=== PATIENT | female | born 1990 | race African-American/Black ===

== ENCOUNTER 2024-11-20 10:01 | Outpatient (AMB) | payer OTHER, SELFPAY ==
[2024-11-20 10:23] VITALS: BMI 35.7
--- NOTE | 2024-11-20 10:23 | A.OFFVIS_ITS ---
VS Expanded 11/20/24 10:23 11/22/24 09:00 Height 5 ft 3 in 5 ft 3 in Weight 201 lb 8.04 oz 201 lb BMI 35.7 35.6 Intake Visit Reasons: Obesity Allergies No Known Allergies Allergy (Verified 11/20/24 15:10) Nutrition Presentation Details: Pt presents for MNT for obesity The Pt expresses interest in meal planning/balancing foods Pt reports making dietary modifications by reducing on red meats/and high fat foods which were leading to acid reflux. Pt Reports no longer taking omeprazole since diet modifications and has noticed improvement, with less or no GERD symptoms Pt reports weight loss of 12-15 lbs in 4-6 months food frequency fish : 0-1/wk fruits: 1-2/d vex/wk dairy 1-2/d starches >20 beverages: water, tea , juices PA--- ETOH/SMoking_--- BS Monitoring Most Recent Diabetes Results: No Data to Display LMR-Wzblovj-Lz.Jeor Equation Height: 5 ft 3 in Weight: 201 lb Resting Metabolic Rate: 1587.57 Calculated Activity Level: Sedentary Calories Needed to Maintain Weight: 1905.08 Diagnosis Nutrition problem #1: food nutri know defi As related to (etiology) #1: diagnosis As evidenced by (sign/symptom) #1: high BMI (35 today at 11/22/24) [facility], [facility] Medical History (Updated 11/22/24 @ 08:[address], LDN) Numbness and tingling in both hands Anxiety Class 2 obesity Surgical History (System 11/20/24 @ 15:10 by Eduardo Burton) [place] teeth removed Family History Mother HTN (hypertension) Diabetes Anemia Maternal Grandmother Anemia Maternal Uncle Crohn's disease Multiple myeloma Social History (System 11/20/24 @ 15:10 by Eduardo Burton) Alcohol intake: never Patient Tobacco Use Status: Never used Tobacco Assessment & Plan Assessment & Plan (1) Obesity (BMI 30-39.9): Code(s): E66.9 - Obesity, unspecified Category: Medical Plan: Wt: 91 Kg ( 12/10 ) Est kcal needs as per MSJ: 2000 (40% carb, 30% protein/fat) Est fluid needs as per 25-30 ml/d: 2700 Est prot per day as per 1 g/kg bw: 91 Recommend fiber intake : 8-10 g per day and gradually increase to 25-28 g per day for women and 35-38 g for men or as tolerated Recommend sodium intake per day : less than 2000 mg Educated patient on: ( R = reviewed V = verbalizes understanding N/R = needs review N/A = not applicable * Food sources of carbohydrate, adequate serving sizes and its role in various health conditions: R V N/R * Differences between complex carbohydrates a simple carbohydrates, role of fiber in diet: R * Lean protein sources of foods: R * Differences between types of fats and role in diet (mono on saturated fat fatty acids, saturated fatty acids, trans fats): R V N/R * Food sources of sodium in salt and healthy modifications for heart health in kidney health: R V R/V * Vitamins and minerals: R V N/R * Healthy plate method concept: R * Physical activity: Benefits a precaution: R V N/R * Patient Instructions: Practice mindful eating strategies Follow healthy plate method continuing to work on reducing on fats (fried foods, amount of butter, oil, sauces, creams , breaded food items, pastries and similar food) see 1999 calorie meal plan following healthy plate method Coding Level of Care Code Nutr Indiv Intake (69368) Diagnoses Obesity (BMI 30-39.9) E66.9 Time Spent (min) 20
--- OUTSIDE RECORDS SUMMARY | 2024-11-20 11:16 | XMS_ITS | Data Portability ---
Author Organization [place] - [facility] Address [address] [place] [address] Assessment Encounter Date Assessment Date Assessment LastModified by Organization Details LastModified Time 06/09/2024 06/09/2024 Ddx: Viral URI, Acute Bronchitis, Influenza, ABRS, COVID-19 A: Symptoms consistent with viral URI. Patient without symptoms suggestive of bacterial etiology at this time. P: Discussed expected course of viral URIs. Provided counseling/treatme nt recommendations as noted below: Nasal saline rinses Humidification Rest, hydration Smoking cessation as indicated Monitor for fever, SOB, wheezing, worsening breathing difficulty Medications prescribed: atarax 10mg every 8 hours as needed Antibiotic stewardship education Counseled on the importance of follow up if symptoms not improving with recommended treatment plan. Patient to be seen for repeat evaluation if symptoms worsen, counseled on red flag symptoms to indicate need for emergent follow up. Patient expressed understanding and agreement with treatment plan as outlined. anxiety - mother one year ago - atarax 10mg can take every 8 hours as needed for anxiety rmeirer Not available 06/09/2024 15:20:06 Plan of Treatment Reminders Order Date Submit Date Provider Last Modified By Organization Details Last Modified Time Details Appointments None recorded. Lab None recorded. Referral None recorded. Procedures None recorded. Surgeries None recorded. Imaging None recorded. Medication Orders hydroxyzine HCl 10 mg tablet 2023 024 [facility] #[id number], [address] [place], [address], 15:20:58 Patient TargetsNo targets recorded. Patient Instructions Encounter Date Encounter Id Patient Instructions Last Modified By Organization Details Last Modified Time 06/09/2024 [id number] grief (actual/anticipat ed): care instructions rmeirer Not available 06/09/2024 15:20:56 upper respirator y infection (cold): care instructions rmeirer Not available 06/13/2024 06:57:54 Reason for Referral None Reported. Problems No Known Problems Medical Equipment None Reported. Allergies No known drug allergies Medications Name Sig Start Date Stop Date Status Note LastModified by Organization Details LastModified Time norethindrone (contraceptive) 0.35 mg tablet active Not Available Not Availab le Not Available hydroxyzine HCl 10 mg tablet Take 1 tablet 4 times a day by oral route as needed, for anxiety. 2023 active Not Available Not Available Not Avai lable fluticasone propionate 50 mcg/actuation nasal spray,suspensio n active Not Available Not Available Not Available Vitals None Recorded Social History None recorded. Functional Status None recorded. Mental Status None recorded. Family History Nothing Reported. Medical History No medical history recorded. Gynecological HistoryNo gynecological history recorded. Obstetrics History GPAL:G 0 P 0 0 0 0 Past Encounters Encounter ID Performer Location Encounter Start Date Encounter Closed Date Diagnosis/Indication Diagnosis SNOMED-CT Code Diagnosis ICD10 Code Diagnosis Note [id number] Karuna Johns DO [address] [address] 06/09/2024 14:48:59 06/13/2024 09:21:25 Bereavement 01284134 Z63.4 Acute uppe r respiratory infection 06073173 J06.9 Health Concerns Section Related Observation LastModified by Organization Detai ls LastModified Time None Recorded Concern Status LastModified by Organization Details LastModified Time None Recorded Advance Directives Directive None Recorded Payers Encounter Date Sequence Insurance Name Policy Number Policy Macdonald Covered Member ID Macdonald Member ID Guarantor Name 06/09/2024 1 [facility] [id number] Carrol Antrum [id number] [employer] An[employer] 06/09/2024 2 *SELF PAY* [id number] Carrol Antrum [id number] Carrol Antrum Notes Date Note Type Note Provider Name and Address Organization Details Recorded Time 06/09/2024 text/html Call connected, patient greeted. Patient name, , telephone number and location verified verbally with the patient. Telemedicine limitations reviewed, answered all questions the patient had about the telehealth interaction, and verbal consent obtained to treat. HPI: 34 year old female calling c/o being sick for one week. Never felt so sick. Her symptoms started 8 days ago - stuffy nose at first. Wednesday morning had a nose bleed. Next day had a sore throat, lost voice, improved. 2-3 days ago, felt like discomfort 1/10 in chest, +coughing, intermittent. Coughs up mucus. Nasal congestion has improved. Had a visit with primary care and was prescribed nasocort. [place] better later that day with humdifier. no wheezing. No fever and body aches. Had flu. covid - did not take. Karuna Johns, DO [address] [facility] [address], [place], [address], [facility] 06/13/2024 06:58:01 OBGyn Episode No OBEpisode recorded.
[2024-11-22 09:00] VITALS: BMI 35.6
== END 2024-11-20 10:43 | disposition home or self-care (01) ==
LOC: HO.ENCR 10:01
PROVIDERS: PCP Student in an Organized Health Care Education/Training Program; Visit Provider Dietitian, Registered
DX: E66.9 Obesity, unspecified (principal)

== ENCOUNTER → 2024-11-20 10:01 | Outpatient (BNVA) | payer OTHER, SELFPAY | PROVIDERS: PCP Student in an Organized Health Care Education/Training Program; Visit Provider Dietitian, Registered | DX: E66.9 Obesity, unspecified (principal); Z71.3 Dietary counseling and surveillance; Z68.35 Body mass index [BMI] 35.0-35.9, adult | CPT/HCPCS: 97802 ==

== ENCOUNTER 2024-11-20 13:37 | Outpatient (AMB) | payer OTHER, SELFPAY ==
--- NOTE | 2024-11-20 14:12 | A.OFFVIS_ITS ---
Vital Signs 11/20/24 14:14 Height 5 ft 3 in Weight 202 lb 8 oz BMI 35.9 BP 122/78 Blood Pressure Location Rt brachial Position Sitting Intake Visit Reasons: ENP- Numbness / [place]ing[place]-Conf Intake Note: Patient referred by [facility] for numbness and tingling Allergies No Known Allergies Allergy (Verified 11/13/24 09:49) Medication List - Last Reconciled 11/20/24 by Maye Goodwin MD fluticasone propionate 50 mcg/actuation 2 sprays intranasal DAILY HPI Comments Details: 34 y/o female comes for evaluation of 1 episodes of numbness and tingling in hilaria hands and restless legs. The episode was in May 2024 she woke up , felt woozy and also mildly off balance . she thought it was panic attack . when she went to the shower - she could not lift her arms above the shoulder and had tingling in hilaria forearms and hands. she called 911, it lasted 20 minutes.she did not go to ER as she had a PCP appointment later that day.the second episode was day before - was getting ready for bed, had a mild headache , took tylenol . she could not sleep well that night and restless , tingling in her legs . No further episodes since then . she denies neck pain or back pain she denies any radiating pain . she sleeps well. denies snoring. 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 and she is wondering if it is contributing [facility] Medical History (Updated 11/20/24 @ 14:42 by Maye Goodwin MD) Numbness and tingling in both hands Anxiety Class 2 obesity Surgical History [place] teeth removed Family History Mother HTN (hypertension) Diabetes Anemia Maternal Grandmother Anemia Maternal Uncle Crohn's disease Multiple myeloma Social History Alcohol intake: never Patient Tobacco Use Status: Never used Tobacco Physical Exam Vital Signs: Last Vital Signs BP 122/78 11/20/24 14:14 BMI result Body Mass Index 35.9 Const General: cooperative, healthy appearing and comfortable Nutritional Appearance: average body habitus Orientation/consciousness: patient oriented x3 Eyes Pupils: Equal, round and reactive pupils present Neuro General: patient oriented x3, gait normal, tone normal, moves all extremities and no focal motor deficits Cranial nerves: Yes Facial sensation intact/muscles of mastication intact, Yes Equal, round and reactive pupils present, Yes Bilaterally intact EOM present, Yes Nystagmus not present, Yes Normal facial strength present, Yes Midline tongue present, Yes Symmetric palate elevation present and Yes Ability to bilaterally elevate shoulders present Cognition (Neuro): normal cognition Gait exam (Neuro): Normal gait present Motor exam (neuro): 5/5 motor strength present throughout and Normal motor mus sebastian tone present throughout Deep tendon reflexes (DTR's): Right triceps reflex intensity grade: 1+, Left triceps reflex intensity grade: 1+, Rt Biceps (C5, C6): 1+, Left biceps reflex intensity grade: 1+, Right brachioradialis reflex intensity grade: 1+, Left brachioradialis reflex intensity grade: 1+, Right patellar reflex intensity grade: 1+ and Left patellar reflex intensity grade: 1+ Coordination: [id number] test normal Assessment & Plan Assessment & Plan (1) Numbness and tingling in both hands: Code(s): R20.0 - Anesthesia of skin; R20.2 - Paresthesia of skin Category: Medical Plan I will evaluate her with EMG NCS UE Lab reports from PCP for review. Orders: Orders NE electromyogram (EMG) Today R20.0 - Anesthesia of skin, R20.2 - Paresthesia of skin NE nerve conduction velocity Today R20.0 - Anesthesia of skin, R20.2 - Par esthesia of skin Coding Level of Care Code New Pt Level 4 (88747) Diagnoses Numbness and tingling in both hands R20.0; R20.2
[2024-11-20 14:14] VITALS: BP 122/78; BMI 35.9
--- OUTSIDE RECORDS SUMMARY | 2024-11-20 15:06 | XMS_ITS | Clinical Summary ---
Author Organization [address] [facility] Address [address] [place] [address] Phone Care Team Providers Care Sandstone Inspector Repairer Name Role Phone Humera Bautista MD Primary Care Provider [phone] Allergies No known active allergies Medications norethindrone (DONALD,BHUMIKA,H EATHER,MICRONOR ) 0.35 mg tablet TAKE 1 TABLET BY MOUTH EVERY DAY 4 Active multivit-min/fe rrous fumarate (MULTI VITAMIN ORAL) Take by mouth. Activ e cholecalciferol (VITAMIN D-3) 250 mcg (10,000 unit) capsuleIndicati ons:Other fatigue Take 1 capsule (10,000 Units total) by mouth 1 (one) time each day. 30 each 11 4 06/05/20 25 Active fluticasone propionate (FLONASE) 50 mcg/actuation nasal sprayIndication s:allergic conjunctivitis, allergic rhinitis Administer 2 sprays into each nostril 1 (one) time each day. Shake gently. Before first use, prime pump. After use, clean tip and replace cap. 30 mL 3 4 Active pantoprazole (PROTONIX) 40 mg EC tablet Take 1 tablet (40 mg total) by mouth 1 (one) time each day. Do not crush, chew, or split. 90 each 1 4 12/31/19 25 Active Active Problems Problem Noted Date Diagnosed Date Class 2 obesity with body ma ss index (BMI) of 37.0 to 37.9 in adult 04/24/2024 Encounters Date Type Department Care Team Description 10/04/2024 9:45 AM EDT Telemedicine Internal Medicine - [address] [place] [address] Humera Bautista MD Gastroesophageal reflux disease, unspecified whether esophagitis present (Primary Dx) from Last 3 Months Immunizations Name Administration Dates Next Due DTP 11/16/1995, 4,1991,1991,1991 VFpU-EIY-DIC (Pentacel) 2mo to less than 5yo 1991,1991,1991 Hepatitis B Pediatric (Enger ix B; Recombivax HB) to less than 20 yo 03/30/2002,11/18/2001,06/16/2001 Influenza Quadravalent, MDCK , 0.5ml, preservative free (Flucelvax) 6mo and older 03/29/2019,08/22/2018 Influenza, Unspecified 04/10/2020 MMR, measles mumps and rubel la Live (Priorix; M-M-R II) 12mo and older 11/16/1995,05/09/1992 OPV 11/16/1995, 4,1991,1991,1991 MyoScience SARS-CoV-2 COVID-19, mRNA, LNP-S, preservative free 12/30/2020,12/08/2020 Rubella 03/11/2020 Td Tetanus diptheria (Tdvax) 7yo and older 04/18/2003 Tdap Tetanus diptheria acell ular pertussis (Boostrix; Adacel) 7yo and older 07/02/2020,08/22/2018 Varicella live (Varivax) 12m o and older 11/06/2020,10/06/2020,10/29/2011,2002 Zoster Live 03/11/2020 Surgical History Surgery Date Site/Laterality Comments WISDOM TOOTH EXTRACTION 2016 Bilateral PROCEDURE: HISTORICAL WISDOM TEETH EXTRACTION; COMMENT: lower R, upper left. no excess bleeding. Medical History Medical History Date Comments Covid-19 07/20/2021 DX:COVID-19; COM MENT: [facility] Family History Medical History Relation Name Comments Other: 2 yrs younger Brother Wood healthy as of 02/2020 Other: mild autism Brother Wood No Known Problems Father no contact , he abandoned family when pt was 7 Colon polyps Maternal Grandfather Other: Other Maternal Grandfather healthy age 73 as of 02/2020 Anemia Maternal Grandmother Diabetes Maternal Grandmother due to medications she was on (primarily diet controlled) Multiple myeloma Maternal Grandmother age 69 Other: ITP Maternal Grandmother Anemia Mother Diabetes Mother type 2 - insuli n Hypertension Mother Obesity Mother Leukemia Mother's side MGGM juvenile leuke himanshu - passed in her 30's No Known Problems Paternal Grandfather No Known Problems Paternal Grandmother Crohn's disease Uncle maternal Multiple myeloma Uncle maternal Breast cancer Neg Hx Cervical cancer Neg Hx Colon cancer Neg Hx Ovarian cancer Neg Hx Pancreatic cancer Neg Hx Prostate cancer Neg Hx Uterine cancer Neg Hx Relation Name Status Comments Brother Wood Alive Father Alive Maternal Grandfather Alive Maternal Grandmother Mother Mother's side MGGM Paternal Grandfather Paternal Grandmother Uncle maternal Alive Social History Tobacco Use Types Packs/Day Years Used Date Smoking Tobacco: Never Smokeless Tobacco: Never Tobacco Cessation:Counseling Given: Not Answered Alcohol Use Standard Drinks/Week Comments No 0 (1 standard drink = 0.6 oz pur e alcohol) Housing Instability Answer Date Recorde d Are you worried that in the next 2 months you may not have stable housing? No 05/30/2024 Food Access & Nutrition Answer Date Rec orded Do you have access to a vari ety of food including fruits and vegetables? Patient declined 05/30/2024 Health Literacy Answer Date Recorded How often do you need to hav e someone help you when you read instructions, pamphlets, or other written material from your doctor or pharmacy? Patient declined 05/30/2024 Caregiver: How often do you need to have someone help you when you read instructions, pamphlets, or other written material from your doctor or pharmacy? Not on file 024 Financial Risk Answer Date Recorded How hard is it for you to pa y for the very basics like food, housing, medical care, and air conditioning / heating? Not asked 05/30/2024 Transportation Answer Date Recorded Has the lack of transportati on kept you from meetings, work, or from getting things needed for daily living? Not asked 2023 Has the lack of transportati on kept you from medical appointments or from getting medications? Not asked 05/30/2024 Social Isolation Answer Date Recorded How often do you feel lonely or isolated from those around you? Not asked 05/30/2024 Food Risk Answer Date Recorded Within the past 12 months we worried whether our food would run out before we got money to buy more. Not asked 05/30/2024 Within the past 12 months th e food we bought just didn't last and we didn't have money to get more. Not asked 05/30/2024 Dependent Care Answer Date Recorded Do you need help finding or paying for care for your loved ones. For example, child neurologist or elderly care for an older adult? Patient declined 05/30/2024 Education Answer Date Recorded Do you think completing more education or training, like finishing a GED, going to college, or learning a trade, would be helpful for you? N/A 05/30/2024 Employment and Income Answer Date Recor ded During the last four weeks, have you been actively looking for work? Patient declined 05/30/2024 Living Situation Answer Date Recorded What is your living situation? 1 07/30/2023 Comments Unknown Sex and Gender Information Value Date Recorded Sex Assigned at Female 07/05/2024 10:46 AM EST Legal Sex Female 9:33 AM EST Gender Identity Female 07/05/2024 10:46 AM EST Sexual Orientation Straight 07/05/2024 10 :46 AM EST Obstetrics History Last Filed Vital Signs Vital Sign Reading Time Taken Comments Blood Pressure 116/84 07/03/2024 12:05 PM EST Pulse 108 07/03/2024 12:05 PM EST Temperature 36.1 ??C (97 ??F) 07/03/2024 12:05 PM EST Respiratory Rate - - Oxygen Saturation 98% 07/03/2024 12:05 PM EST Inhaled Oxygen Concentration - - Weight 97.5 kg (215 lb) 07/03/2024 12:05 PM EST Height 157.5 cm (5' 2 ) 07/03/2024 12:05 PM EST Body Mass Index 39.32 07/03/2024 12:05 PM EST Plan of Treatment Upcoming Encounters Date Type Department Care Team (Late st Contact Info) Description 12/04/2024 9:00 AM EDT Office Visit Internal Medicine - [place] [address] [facility] [address] [place] [id number] Humera Bautista MD [address] [facility] [address] [place] [address] Health Maintenance Due Date Last Done Comments COVID-19 Vaccine ( season) 2024 12/30/2020, 12/08/2020 Influenza Vaccine (Season Ended) 2025 04/10/2020, 03/29/2019, 08/22/2018 Social Influencers of Health Screening 05/30/2025 05/30/2024 Depression Screening 09/22/2025 09/22/2024 Cervical Cancer Screening: HPV 08/25/2027 08/25/2022 Cholesterol Screening (Lipid Panel) 06/05/2029 06/05/2024, 10/08/2023, 10/29/2017 DTaP,Tdap,and Td Vaccines (9 - Td or Tdap) 07/02/2030 07/02/2020, 08/22/2018, 04/18/2003, Additional history exists HIB Vaccines Aged Out 1991, 09/16, 1991 No longer eligible based on patient's age to complete this topic IPV Vaccines Completed 11/16/1995, 07/1993, 1991, Additional history exists MMR Vaccines Completed 11/16/1995, 05/09/1992 Hepatitis B Vaccines Completed 03/30/2002, 11/18/2001, 06/16/2001 HIV Screening Completed 03/11/2020 Hepatitis C Screening Completed 03/11/2020 Varicella Vaccines Completed 11/06/2020, 0 10/06/2020, 10/29/2011, Additional history exists HPV Vaccines Aged Out No longer eligi ble based on patient's age to complete this topic Hepatitis A Vaccines Aged Out No long er eligible based on patient's age to complete this topic Meningococcal ACWY Vaccine Aged Out N o longer eligible based on patient's age to complete this topic Meningococcal B Vaccine Aged Out No l onger eligible based on patient's age to complete this topic Pneumococcal Vaccine: Pediatrics (0 to 5 Years) and At-Risk Patients (6 to 64 Years) Aged Out No longer eligible based on patient's age to complete this topic RSV Immunization Patients Under 20 months Aged Out No longer eligible based on patient's age to complete this topic Procedures Procedure Name Priority Date/Time Associated Diagnosis Comments LIPID PANEL WITH REFLEX TO DIRECT LDL Routine 06/05/2024 10:06 AM EST Routine adult health maintenance HPV Routine 08/25/2022 HEPATITIS C SCREENING Routine 03/11/2020 HIV SCREENING Routine 03/11/2020 from Last 3 Months or Most Recently Relevant to Health Maintenance Results * (ABNORMAL) Lipid panel with reflex to direct LDL (06/05/2024 10:06 AM EST) Cholesterol 183 0 - 200 mg/dL LAB CHEMISTRY METHOD 06/05/2024 4:[address] [facility] Triglycerides 104 0 - 150 mg/dL LAB CHEMISTRY METHOD 06/05/2024 4:[address] [facility] HDL 58 >=40 mg/dL LAB CHEMISTRY METHOD 06/05/2024 4:[address] [facility] LDL Calculated 104(H) 0 - 100 mg/dL LAB CHEMISTRY METHOD 06/05/2024 4:[address] [facility] VLDL Cholesterol Navi 20.8 mg/dL LAB CHEMISTRY METHOD 06/05/2024 4:[address] [facility] Non HDL Chol. (LDL+VLDL) 125 <145 mg/dL LAB CHEMISTRY METHOD 06/05/2024 4:[address] [facility] Chol/HDL Ratio 3.2 0.0 - 4.4 LAB CHEMISTRY METHOD 06/05/2024 4:[address] [facility] Blood Venous blood specimen / Unknown Venipuncture / Unknown 06/05/2024 10:06 AM EST 06/05/2024 10:07 AM EST Alicia Warren LEAD WEB DEVELOPER LAB BLOOD ORDERABLES Final Resul t [facility] ([facility]) [facility] [address] [place] [address], * Cervical Cancer Screening: HPV (08/25/2022) Pathologist [facility] Cervical Cancer Screening: HPV Negative, Abstracted Historical Provider HEALTH MAINTENANCE Final Result * HIV Screening (03/11/2020) [facility] HIV Screening Abstracted Historical Provider HEALTH MAINTENANCE Final Result * Hepatitis C Screening (03/11/2020) Pathologist [facility] Hepatitis C Screening Abstracted Historical Provider HEALTH MAINTENANCE Final Result from Last 3 Months or Most Recently Relevant to Health Maintenance Insurance [facility] [place] [id number] Care Teams Sandstone Inspector Repairer Relationship Specialty Start Date End Date Humera Bautista MD [address] [facility] [address] [place] [address] PCP - General 10/06/23
--- OUTSIDE RECORDS SUMMARY | 2024-11-20 15:06 | XMS_ITS | Data Portability ---
Author Organization [place] - [facility] , [facility] Address [address] [place] [address] Assessment Encounter Date Assessment Date Assessment LastModified [...] hydroxyzine HCl 10 mg tablet 2023 024 [facility]Pharmacy #[id number], [address] [place], [address], 15:20:58 Patient TargetsNo targets recorded. Patient Instructions Encounter Date Encounter Id Patient Instructions Last Modified By Organization Details Last Modified Time 06/09/2024 [id number] grief (actual/anticipat ed): care instructions rmeirer Not [...] SNOMED-CT Code Diagnosis ICD10 Code Diagnosis Note [id number] Karuna Johns DO [address] [address] 06/09/2024 14:48:59 06/13/2024 09:21:25 Bereavement 43153407 Z63.4 Acute uppe r respiratory infection 28228823 J06.9 Health Concerns Section Related Observation LastModified by Organization Detai ls LastModified Time None Recorded Concern Status LastModified by Organization Details LastModified Time None Recorded Advance Directives Directive None Recorded Payers Encounter Date Sequence Insurance Name Policy Number Policy Macdonald Covered Member ID Macdonald Member ID Guarantor Name 06/09/2024 1 [facility] [id number] Carrol Antrum [id number] Carrol Antrum 06/09/2024 2 *SELF PAY* [id number] Carrol Antrum [id number] Carrol Antrum Notes Date Note Type Note [...] with primary care and was prescribed nasocort. [place] better later that day with humdifier. no wheezing. No fever and body aches. Had flu. covid - did not take. Karuna Johns, DO 1 [facility] [address], [place], [address], [facility] - [facility] 06/13/2024 06:58:01 OBGyn Episode No OBEpisode recorded.
== END 2024-11-20 14:51 | disposition home or self-care (01) ==
LOC: HO.HSMS 13:38
PROVIDERS: PCP Student in an Organized Health Care Education/Training Program; Visit Provider Psychiatry & Neurology Neurology
DX: R20.0 Anesthesia of skin (principal); R20.2 Paresthesia of skin
CPT/HCPCS: 99204

== ENCOUNTER → 2024-11-20 13:37 | Outpatient (BNVA) | payer OTHER, SELFPAY | PROVIDERS: PCP Student in an Organized Health Care Education/Training Program; Visit Provider Psychiatry & Neurology Neurology ==

== ENCOUNTER 2024-12-05 09:21 | Outpatient (REF) | payer OTHER, SELFPAY ==
--- NOTE | 2024-12-05 09:26 | EMG_ITS ---
Bilateral median and ulnar motor and sensory studies were performed. Bilateral radial sensory and median and lateral antecubital brachial sensory studies were performed and paraspinal muscles were tested with a needle. IMPRESSION: Mild bilateral median neuropathy across carpal tunnel. MD GERBER Morrison/GEORGIE / [id number]
--- OUTSIDE RECORDS SUMMARY | 2024-12-05 10:10 | XMS_ITS | Data Portability ---
Author Organization [place] - [facility] , [facility] Address [address] [place] [address] Assessment Encounter Date Assessment Date Assessment LastModified [...] hydroxyzine HCl 10 mg tablet 2023 024 [facility]/Pharmacy #[id number], [address] [place], [address], 15:20:58 Patient TargetsNo targets recorded. Patient Instructions Encounter Date Encounter Id Patient Instructions Last Modified By Organization Details Last Modified Time 06/09/2024 [id number] grief (actual/anticipat ed): care instructions rmeirer Not [...] SNOMED-CT Code Diagnosis ICD10 Code Diagnosis Note [id number] Karuna Johns DO [address] [address] 06/09/2024 14:48:59 06/13/2024 09:21:25 Bereavement [id number] Z63.4 Acute uppe r respiratory infection [id number] J06.9 Health Concerns Section Related Observation LastModified by Organization Detai ls LastModified Time None Recorded Concern Status LastModified by Organization Details LastModified Time None Recorded Advance Directives Directive None Recorded Payers Insurance Date Sequence Insurance Name Policy Number Policy Macdonald Covered Member ID Macdonald Member ID Guarantor Name 06/07/2024 1 *SELF PAY* Ja zmine Antrum 06/19/2024 1 [facility] [id number] Carrol Antrum [id number] Carrol Antrum 06/07/2024 [employer] [id number] Carrol Antrum [id number] Carrol Antrum 06/07/2024 2 *SELF PAY* [id number] Carrol Antrum [id number] Carrol Antrum Notes Date Note Type Note [...] with primary care and was prescribed nasocort. Percy better later that day with humdifier. no wheezing. No fever and body aches. Had flu. covid - did not take. Karuna Johns, DO 1 [facility] [address], [place], [address], [place] - [facility] 06/13/2024 06:58:01 OBGyn Episode No OBEpisode recorded.
--- OUTSIDE RECORDS SUMMARY | 2024-12-05 10:10 | XMS_ITS | Encounter Summary ---
Author Organization [facility] Address [address] [place] [address] Care Team Providers Care Calender Machine Operator Helper Name Role Phone Humera Bautista MD Primary Care Provider [phone] Reason for Visit * Reason Comments Follow-up Encounter Details Date Type Department Care Team ([facility] st Contact Info) Description 12/04/2024 9:00 AM EDT Office Visit Internal Medicine - [place] [address] [facility] [address] [place] [phone] Humera Bautista MD [address] [address] Class 2 obesity with body mass index (BMI) of 37.0 to 37.9 in adult, unspecified obesity type, unspecified whether serious comorbidity present (Primary Dx); Gastroesophageal reflux disease, unspecified whether esophagitis present Social History Tobacco Use Types Packs/Day Years Used Date Smoking Tobacco: Never Smokeless Tobacco: Never Alcohol Use Standard Drinks/Week Comments No 0 [...] your doctor or pharmacy? Not on file Financial Risk Answer Date Recorded How hard [...] care for your loved ones. For example, children's literature professor or elderly care for an older adult? [...] Orientation Straight 07/05/2024 10 :46 AM EST documented as of this encounter Last Filed Vital Signs Vital Sign Reading Time Taken Comments Blood Pressure 124/68 12/04/2024 9:04 AM EDT Pulse 84 12/04/2024 9:04 AM EDT Temperature - - Respiratory Rate - - Oxygen Saturation 98% 12/04/2024 9:04 AM EDT Inhaled Oxygen Concentration - - Weight 91.2 kg (201 lb) 12/04/2024 9:04 AM EDT Height - - Body Mass Index 36.76 07/03/2024 12:05 PM EST documented in this encounter Ordered Prescriptions Prescription Sig Dispense Quantity Refills Last Filled Start Date End Date calcium carbonate-vitamin D 500 mg-5 mcg (200 unit) per tablet Take 1 tablet by mouth 2 (two) times a day. 180 each 3 12/04/2024 12/04/2025 documented in this encounter Progress Notes * Humera Bautista MD - 12/04/2024 9:00 AM EDT Images from the original note were not included. Patient Education Gastroesophageal Reflux Disease (GERD): Care Instructions Overview Gastroesophageal reflux disease (GERD) is the backward flow of stomach acid into the esophagus. Theesophagus is the tube that leads from your throat to your stomach. A one-way valve prevents the stomach acid from backing up into this tube. But when you have GERD, this valve does not close tightly enough. This can also cause pain and inflammation in your esophagus. (This is called esophagitis.) You may also hear GERD called acid reflux. If you have mild GERD symptoms including heartburn, you may be able to control the problem with antacids or wvsn-ptq-ksspvrl medicine. You can also make lifestyle changes to help reduce your symptoms. These include changing your diet and eating habits, such as not eating close to bedtime and staying at a weight that's healthy for you. Follow-up care is a price part of your treatment and safety. Be sure to make and go to all appointments, and call your doctor if you are having problems. It's also a good idea to know your test resultsand keep a list of the medicines you take. How can you care for yourself at home? Take your medicines exactly as prescribed. Call your doctor if you think you are having a problem with your medicine. Your doctor may recommend mdxh-bdl-chwkjki medicine. For mild or occasional indigestion, antacids, such as Tums, Mylanta, or Maalox, may help. Your doctor also may recommend obip-nof-lnooinx acid reducers, such as famotidine (Pepcid AC), cimetidine (Tagamet HB), or omeprazole (Prilosec). Read and follow all instructions on the label. If you use these medicines often, talk with your doctor. Stay at a weight that's healthy for you. Extra weight puts a lot of pressure on the valve between the stomach and esophagus. Losing even a few pounds can help. Talk to your doctor if you need help losing weight. Change your eating habits. Try to eat several small meals instead of two or three large meals. After you eat, wait 2 to 3 hours before you lie down. Snacking close to bedtime can make your symptoms worse. Avoid foods that make your symptoms worse. These may include chocolate, mint, alcohol, pepper, spicy foods, high-fat foods, or drinks with caffeine in them, such as tea, coffee, alexander, or energy drinks. If your symptoms are worse after you eat a certain food, you may want to stop eating it to see if your symptoms get better. Try to quit smoking or chewing tobacco, or cut back as much as you can. If you need help quitting, talk to your doctor about quit-tobacco programs and medicines. These can increase your chances of quitting for good. If you have GERD symptoms while trying to sleep, raise the head of your bed 6 to 8 inches by putting the frame on blocks or placing a foam wedge under the head of your mattress. (Adding extra pillowsdoes not work.) Do not wear tight clothing around your middle. When should you call for help? Call 911 anytime you think you may need emergency care. For example, call if: You passed out (lost consciousness). Call your doctor now or seek immediate medical care if: You have new or worse belly pain. Your stools are black and tarlike or have streaks of blood. You vomit blood. Watch closely for changes in your health, and be sure to contact your doctor if: Your symptoms have not improved after 2 weeks. Food seems to catch in your throat or chest. Where can you learn more? Scan the QR code or Go to https://www.Can'tWait.net/allanchart Enter T927 in the search box to learn more about Gastroesophageal Reflux Disease (GERD): Care Instructions. Current as of: May 06, 2024 Content Version: 14.4 ?? [id number] [email or web address]. Care instructions adapted under license by your healthcare professional. If you have questions about a medical condition or this instruction, always ask your healthcare professional. [employer], disclaims any warranty or liability for your use of this information. * Humera Bautista MD - 12/04/2024 9:00 AM EDT CHIEF COMPLAINT: Follow-up IDENTIFIER: Carrol Baxter is a 34 y.o. old female. History of Present Illness The patient presents for a follow-up visit. Overall Health Improvement - Reports overall health improvement due to dietary modification Tingling in Leg - Recurrent tingling in her leg, originating from the posterior knee - Occurs especially after extensive walking Medication and Supplements - Completed pantoprazole - Not using contraceptive medication - Discontinued her multivitamin regimen and is considering resuming it Concerns about Heartburn - Expressed concerns about hereditary factors contributing to heartburn - Informed it is usually diet-related Supplemental information: She has ceased coffee consumption and maintains a food journal. ROS: as per HPI GENERAL: No malaise, significant weight loss or fever HEENT: No changes in hearing or vision, nose bleeds or other nasal problems NECK: No lumps, goiter, pain or significant neck swelling RESPIRATORY: No cough, wheezing or shortness of breath CARDIOVASCULAR: No chest pain, leg swelling or palpitations BREAST: No lumps, discharge, pain or change in skin GI: No abdominal discomfort, blood in stools or black stools : No dysuria, frequency or incontinence NON ACOUSTIC OPERATOR: No abnormal vaginal bleeding or abnormal vaginal discharge. MUSCULOSKELETAL: No joint pain or swelling, back pain, or muscle pain. SKIN: No lesions, rash or itching PSYCH: No sleep disturbance, mood disorder or recent psychosocial stressors. HEMATOLOGY/LYMPHOLOGY No prolonged bleeding, easy bruisability or swollen nodes ENDOCRINE: No cold or heat intolerance, polyuria, polydipsia or goiter. NEURO: No persistent headache, syncope, seizures, weakness or numbness The remainder of the review of systems is noncontributory PAST MEDICAL HISTORY: Patient Active Problem List Diagnosis Date Noted Class 2 obesity with body mass index (BMI) of 37.0 to 37.9 in adult 04/24/2024 Past Surgical History: Procedure Laterality Date WISDOM TOOTH EXTRACTION Bilateral 2016 PROCEDURE: HISTORICAL WISDOM TEETH EXTRACTION; COMMENT: lower R, upper left. no excess bleeding. SOCIAL HISTORY: Social History Tobacco Use Smoking status: Never Smokeless tobacco: Never Substance Use Topics Alcohol use: No FAMILY HISTORY: Family History Problem Relation Name Age of Onset Hypertension Mother Diabetes Mother type 2 - insulin Obesity Mother Anemia Mother No Known Problems Father no contact, he abandoned family when pt was 7 Other (Other: 2 yrs younger) Brother Wood healthy as of 02/2020 Other (Other: mild autism) Brother Wood Multiple myeloma Maternal Grandmother 51.00 age 69 Diabetes Maternal Grandmother due to medications she was on (primarily diet controlled) Anemia Maternal Grandmother Other (Other: ITP) Maternal Grandmother Other (Other: Other) Maternal Grandfather healthy age 73 as of 02/2020 Colon polyps Maternal Grandfather 70.00 No Known Problems Paternal Grandmother No Known Problems Paternal Grandfather Multiple myeloma Uncle maternal Crohn's disease Uncle maternal Leukemia Mother's side MGGM juvenile leukemia - passed in her 30's Breast cancer Neg Hx Ovarian cancer Neg Hx Cervical cancer Neg Hx Uterine cancer Neg Hx Colon cancer Neg Hx Pancreatic cancer Neg Hx Prostate cancer Neg Hx Family Status Relation Name Status Mother Father Alive Brother Wood Alive MGM MGF Alive PGM PGF Uncle maternal Alive Mother's bryan MGGM Neg Hx (Not Specified) No partnership data on file MEDICATIONS DISCONTINUED/REORDERED: Medications Discontinued During This Encounter Medication Reason pantoprazole (PROTONIX) 40 mg EC tablet Therapy completed norethindrone (DONALD,BHUMIKA,CHRISTA,MICRONOR) 0.35 mg tablet Therapy completed multivit-min/ferrous fumarate (MULTI VITAMIN ORAL) Therapy completed cholecalciferol (VITAMIN D-3) 250 mcg (10,000 unit) capsule Therapy completed ACTIVE MEDICATIONS: No outpatient medications have been marked as taking for the 12/04/24 encounter (Office Visit) with Humera Bautista MD. ALLERGIES: No Known Allergies PHYSICAL EXAM: Visit Vitals BP 124/68 (BP Location: Left arm, Patient Position: Sitting, BP Cuff Size: Large adult) Pulse 84 Wt 91.2 kg (201 lb) SpO2 98% BMI 36.76 kg/m?? Smoking Status Never BSA 1.92 m?? Physical Exam Physical Exam General Appearance: well appearing and not in acute distress HEENT: Normocephalic. External ears normal. Nose normal. Mucous membranes are moist. Oropharynx is clear. Eyes: Conjunctivae normal. Respiratory: Clear to auscultation, no wheezing, rales, or rhonchi. Cardiovascular: Regular rate and rhythm, no murmurs, rubs, or gallops. Gastrointestinal: Bowel sounds present, no tenderness, no distention, no masses. Back, Musculoskeletal: Normal range of motion. Normal cervical range of motion and neck supple. Extremities: No edema, no cyanosis. Skin: Warm and dry, no rash. Neurological: Alert. LABS/IMAGING: No visits with results within 6 Month(s) from this visit. Latest known visit with results is: Appointment on 06/05/2024 Component Date Value Ref Range Status Cholesterol 06/05/2024 183 0 - 200 mg/dL Final Triglycerides 06/05/2024 104 0 - 150 mg/dL Final HDL 06/05/2024 58 >=40 mg/dL Final LDL Calculated 06/05/2024 104 (H) 0 - 100 mg/dL Final VLDL Cholesterol Navi 06/05/2024 20.8 mg/dL Final Non HDL Chol. (LDL+VLDL) 06/05/2024 125 <145 mg/dL Final Chol/HDL Ratio 06/05/2024 3.2 0.0 - 4.4 Final Hemoglobin A1C 06/05/2024 5.1 <6.5 % Final Mean Bld Glu Estim. 06/05/2024 100 mg/dL Final Magnesium 06/05/2024 2.0 1.9 - 2.6 mg/dL Final TSH 06/05/2024 1.34 0.40 - 4.00 mcIU/mL Final Vitamin B-12 06/05/2024 750 250 - 900 pcg/mL Final Vit D, 25-Hydroxy 06/05/2024 29.6 (L) 30.0 - 80.0 ng/mL Final WBC 06/05/2024 5.4 4.8 - 10.8 K/mcL Final RBC 06/05/2024 4.40 3.80 - 4.80 M/mcL Final Hemoglobin 06/05/2024 12.8 11.5 - 16.0 g/dL Final Hematocrit 06/05/2024 39.3 35.0 - 47.0 % Final MCV 06/05/2024 89.3 79.0 - 98.0 FL Final MCH 06/05/2024 29.1 27.0 - 32.0 pcg Final MCHC 06/05/2024 32.6 32.0 - 37.0 g/dL Final RDW 06/05/2024 12.7 11.0 - 15.0 % Final Platelets 06/05/2024 300 130 - 400 K/mcL Final MPV 06/05/2024 10.1 7.0 - 11.0 FL Final NRBC 06/05/2024 0.0 <1.0 % Final NRBC Absolute 06/05/2024 0.00 <0.10 K/mcL Final Sodium 06/05/2024 138 133 - 145 mmol/L Final Potassium 06/05/2024 4.0 3.5 - 5.5 mmol/L Final Chloride 06/05/2024 105 96 - 110 mmol/L Final CO2 06/05/2024 27 21 - 32 mmol/L Final Anion Gap 06/05/2024 6 3 - 11 Final Glucose 06/05/2024 106 (H) 70 - 100 mg/dL Final BUN 06/05/2024 12 5 - 25 mg/dL Final Creatinine 06/05/2024 0.88 0.50 - 1.10 mg/dL Final eGFR 06/05/2024 89 >=60 mL/min/1.73m2 Final BUN/Creatinine Ratio 06/05/2024 13.6 Final Calcium 06/05/2024 9.6 8.5 - 10.5 mg/dL Final Results Labs - Vitamin D: 05/2024, Slightly low - LDL level: 05/2024, 104 mg/dL (mildly high) IMPRESSION: 1. Class 2 obesity with body mass index (BMI) of 37.0 to 37.9 in adult, unspecified obesity type, unspecified whether serious comorbidity present 2. Gastroesophageal reflux disease, unspecified whether esophagitis present PLAN: Class 2 obesity with body mass index (BMI) of 37.0 to 37.9 in adult, unspecified obesity type, unspecified whether serious comorbidity present (Primary) Gastroesophageal reflux disease, unspecified whether esophagitis present Other orders - calcium carbonate-vitamin D 500 mg-5 mcg (200 unit) per tablet; Take 1 tablet by mouth 2 (two) times a day. Dispense: 180 each; Refill: 3 Assessment & Plan 1. Health maintenance: Stable. LDL 104 on 05/2024. - Incorporate 1300 mg calcium daily through food and supplements. - Prescription for calcium and vitamin D supplements to be sent to the pharmacy. - Consume supplements with food to mitigate constipation. - Dietary recommendations include consuming at least one fruit daily, preferably almonds for potassium and magnesium. - Reassured heartburn is likely diet-related, not hereditary. - Advised to avoid spicy and fried foods, nicotine, alcohol, and excessive tea or coffee. - Instructed to elevate the head post-meal. Follow-up - Scheduled follow-up in 6 months for annual physical. I have obtained verbal consent from Carrol Baxter prior to the recording. I have advised Carrol Baxter that she may refuse the recording and require the recording to be turned off at any time during this encounter. Advised the patient to call me if any problems. Patient understands the plan. Patient is in agreement with the plan. Humera Bautista MD on 12/04/2024 at 2:07 PM EDT documented in this encounter Plan of Treatment Upcoming Encounters Date Type Department Care Team ([facility] st Contact Info) Description 06/06/2025 9:15 AM EST Office Visit Internal Medicine - [address] [phone] Humera Bautista MD [address] [place] [phone] documented as of this encounter Visit Diagnoses Diagnosis Class 2 obesity with body mass index (BMI) of 37.0 to 37.9 in adult, unspecified obesity type, unspecified whether serious comorbidity present- Primary Gastroesophageal reflux disease, unspecified whether esophagitis present documented in this encounter Discontinued Medications Medication Sig Discontinue Reason Start Date End Da te pantoprazole (PROTONIX) 40 mg EC tablet Take 1 tablet (40 mg total) by mouth 1 (one) time each day. Do not crush, chew, or split. Therapy completed 07/03/2024 12/04/2024 norethindrone (DONALD,BHUMIKA,CHRISTA,SD CRONOR) 0.35 mg tablet TAKE 1 TABLET BY MOUTH EVERY DAY Therapy completed 10/07/2023 12/04/2024 multivit-min/ferrous fumarate (MULTI VITAMIN ORAL) Take by mouth. Therapy completed 12/04/2024 cholecalciferol (VITAMIN D-3) 250 mcg (10,000 unit) capsuleIndications:Other fatigue Take 1 capsule (10,000 Units total) by mouth 1 (one) time each day. Therapy completed 06/05/2024 12/04/2024 documented as of this encounter Additional Health Concerns Assessment Noted Time PHQ-9 Depression Total Score: 0 09/23/19 25 8:54 AM EST documented as of this encounter Care Teams Calender Machine Operator Helper Relationship Specialty Start Date End Date Humera Bautista MD [address] [place] [address] PCP - General 10/06/23 documented as of this encounter
--- OUTSIDE RECORDS SUMMARY | 2024-12-05 10:10 | XMS_ITS | Clinical Summary ---
Author Organization 175 [facility] Address [address] [place] [address] Phone Care Team Providers Care Animal Nutrition Consultant Name Role Phone Humera Bautista MD Primary Care Provider [phone] Allergies No known active allergies Medications fluticasone propionate (FLONASE) 50 mcg/actuation nasal sprayIndicatio ns:allergic conjunctivitis ,allergic rhinitis Administer 2 sprays into each nostril 1 (one) time each day. Shake gently. Before first use, prime pump. After use, clean tip and replace cap. 30 mL 3 4 Active calcium carbonate-kervin min D 500 mg-5 mcg (200 unit) per tablet Take 1 tablet by mouth 2 (two) times a day. 180 each 3 5 12/05/19 26 Active norethindrone (DONALD,BHUMIKA, CHRISTA,MICRON OR) 0.35 mg tablet TAKE 1 TABLET BY MOUTH EVERY DAY 4 12/05/19 25 Discontinu ed(Therapy completed) multivit-min/f errous fumarate (MULTI VITAMIN ORAL) Take by mouth. 12/05/19 25 Discontinu ed(Therapy completed) cholecalcifero l (VITAMIN D-3) 250 mcg (10,000 unit) capsuleIndicat ions:Other fatigue Take 1 capsule (10,000 Units total) by mouth 1 (one) time each day. 30 each 11 4 12/05/19 25 Discontinu ed(Therapy completed) pantoprazole (PROTONIX) 40 mg EC tablet Take 1 tablet (40 mg total) by mouth 1 (one) time each day. Do not crush, chew, or split. 90 each 1 4 12/05/19 25 Discontinu ed(Therapy completed) Active Problems Problem Noted Date Diagnosed Date Class 2 obesity with body ma ss index (BMI) of 37.0 to 37.9 in adult 04/24/2024 Encounters Date Type Department Care Team Description 12/04/2024 9:00 AM EDT Office Visit Internal Medicine [address] [phone] Humera Bautista MD Class 2 obesity with body mass index (BMI) of 37.0 to 37.9 in adult, unspecified obesity type, unspecified whether serious comorbidity present (Primary Dx); Gastroesophageal reflux disease, unspecified whether esophagitis present 10/04/2024 9:45 AM EDT Telemedicine Internal Medicine - [address] [phone] Humera Bautista MD Gastroesophageal reflux disease, unspecified whether esophagitis present (Primary Dx) from Last 3 Months Immunizations Name Administration Dates Next Due DTP 11/16/1995, 4,1991,1991,1991 [id number] (Pentacel) 2mo to less than 5yo 1991,1991,1991 Hepatitis B Pediatric (Enger ix B; Recombivax HB) to less than 20 yo 03/30/2002,11/18/2001,06/16/2001 Influenza Quadravalent, MDCK , 0.5ml, preservative free (Flucelvax) 6mo and older 03/29/2019,08/22/2018 Influenza, Unspecified 04/10/2020 MMR, measles mumps and rubel la Live (Priorix; M-M-R II) 12mo and older 11/16/1995,05/09/1992 OPV 11/16/1995, 4,1991,1991,1991 Pfizer SARS-CoV-2 COVID-19, mRNA, LNP-S, preservative free 12/30/2020,12/08/2020 [...] History Medical History Date Comments Covid-19 07/20/2021 DX:COVID-Ludi labs; [employer] MENT: [facility] Family History Medical History Relation Name [...] care for your loved ones. For example, childcare teacher or elderly care for an older adult? [...] Pulse 84 12/04/2024 9:04 AM EDT Temperature 36.1 ??C (97 ??F) 07/03/2024 12:05 PM EST Respiratory Rate - - Oxygen Saturation 98% 12/04/2024 9:04 AM EDT Inhaled Oxygen Concentration - - Weight 91.2 kg (201 lb) 12/04/2024 9:04 AM EDT Height 157.5 cm (5' 2 ) 07/03/2024 12:05 PM EST Body Mass Index 36.76 07/03/2024 12:05 PM EST Plan of Treatment Upcoming Encounters Date Type Department Care Team ([facility] st Contact Info) Description 06/06/2025 9:15 AM EST Office Visit Internal Medicine - [address] [place] [phone] Humera Bautista MD [address] [facility] [address] [place] [address] Health Maintenance Due Date Last Done Comments [...] mg/dL LAB CHEMISTRY METHOD 06/05/2024 4:54 PM EST [facility] Triglycerides 104 0 - 150 mg/dL LAB CHEMISTRY METHOD 06/05/2024 4:54 PM EST [facility] HDL 58 >=40 mg/dL LAB CHEMISTRY METHOD 06/05/2024 4:54 PM EST [facility] LDL Calculated 104(H) 0 - 100 mg/dL LAB CHEMISTRY METHOD 06/05/2024 4:54 PM EST [facility] VLDL Cholesterol Navi 20.8 mg/dL LAB CHEMISTRY METHOD 06/05/2024 4:54 PM [facility] Non HDL Chol. (LDL+VLDL) 125 <145 mg/dL LAB CHEMISTRY METHOD 06/05/2024 4:54 PM EST [facility] Chol/HDL Ratio 3.2 0.0 - 4.4 LAB CHEMISTRY METHOD 06/05/2024 4:54 PM [facility] Blood Venous blood specimen / Unknown Venipuncture / Unknown 06/05/2024 10:06 AM EST 06/05/2024 10:07 AM EST Alciia Warren [employer] LAB BLOOD ORDERABLES Final Resul t [facility] [address] [place] [address], * Cervical Cancer Screening: HPV (08/25/2022) [facility] Cervical Cancer Screening: HPV Negative, Abstracted Historical Provider HEALTH MAINTENANCE Final Result * HIV Screening (03/11/2020) [facility] HIV Screening Abstracted Historical Provider HEALTH MAINTENANCE Final Result * Hepatitis C Screening (03/11/2020) [facility] Hepatitis C Screening Abstracted Historical Provider HEALTH MAINTENANCE Final Result from Last 3 Months or Most Recently Relevant to Health Maintenance Insurance [facility] [place] [id number] Care Teams Animal Nutrition Consultant Relationship Specialty Start Date End Date Humera Bautista MD [address] [place] [id number] PCP - General 10/06/23
== END 2024-12-05 09:22 | disposition home or self-care (01) ==
LOC: HO.NEURO 09:21
PROVIDERS: PCP Student in an Organized Health Care Education/Training Program; Visit Provider Psychiatry & Neurology Neurology
DX: R20.0 Anesthesia of skin (principal); R20.2 Paresthesia of skin
CPT/HCPCS: 95886; 95913

== ENCOUNTER 2025-02-19 10:43 | Outpatient (AMB) | payer OTHER, SELFPAY ==
[2025-02-19 11:19] VITALS: BP 122/72; PULSE 91; O2SAT 99; BMI 36.3
--- NOTE | 2025-02-19 11:19 | A.OFFVIS_ITS ---
Vital Signs 02/19/25 11:19 Height 5 ft 3 in Weight 205 lb 2 oz BMI 36.3 BP 122/72 Blood Pressure Location Lt brachial Position Sitting Pulse 91 Pulse Source Pulse Oximeter Pulse Oximetry (%) 99 Oxygen Delivery Method Room Air Intake Visit Reasons: 3 mnts with Justin per MD Intake Note: Patient presents follow up Numbness. EMG in chart Patient would like to go over lab today. Patient complains of headache that traveled. Allergies No Known Allergies Allergy (Verified 02/19/25 11:21) HPI Comments Details: 34 y/o female comes for evaluation of 1 episodes of numbness and tingling in hilaria hands and restless legs. EMG / NCS reviewed with patient she has bilateral median nerve neuropathy. She goes to bed and has her 3 year old in bed with them at 2am he comes to sleep with them and she has fragmented sleep daily. She is chronically fatigued. She has a history of anxiety and panic attacks, on of 2018 her mom passed due to ITP. Mother h/o htn,hld t2dm. Father med hx is unknown. She started seeing a therapist weekly and that has helped with mood and less panic attacks now. She also started walking 2-2.5miles every other day and focuses on her diet now. Her diet is improving she lost 20lbs due to GERD, limits spicy foods and red meats. Memory is stable. Denies RLS symptoms, denies radiating pain, denies neck and back pain, denies bruxism, morning headaches, dizziness. PMH: The episode was in May 2024 she woke up , felt woozy and also mildly off balance . she thought it was panic attack . when she went to the shower - she could not lift her arms above the shoulder and had tingling in hilaria forearms and hands. she called 911, it lasted 20 minutes.she did not go to ER as she had a PCP appointment later that day.the second episode was day before - was getting ready for bed, had a mild headache , took tylenol . she could not sleep well that night and restless, tingling in her legs . No further episodes since then. 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 [facility] Medical History Numbness and tingling in both hands Anxiety Class 2 obesity Surgical History [place] teeth removed Family History Mother HTN (hypertension) Diabetes Anemia Maternal Grandmother Anemia Maternal Uncle Crohn's disease Multiple myeloma Social History Alcohol intake: never Patient Tobacco Use Status: Never used Tobacco Physical Exam Vital Signs: Last Vital Signs Pulse 91 02/19/25 11:19 BP 122/72 02/19/25 11:19 Pulse Ox 99 02/19/25 11:19 Oxygen Delivery Method Room Air 02/19/25 11:19 BMI result Body Mass Index 36.3 Const General: cooperative and comfortable Nutritional Appearance: average body habitus Orientation/consciousness: patient oriented x3 Eyes Pupils: Equal, round and reactive pupils present Resp Effort & Inspection: normal respiratory effort and able to speak in complete sentences Neuro General: patient oriented x3, gait normal, tone normal and moves all extremities Cranial nerves: Yes Facial sensation intact/muscles of mastication intact, Yes E qual, round and reactive pupils present, Yes Bilaterally intact EOM present, Yes Nystagmus not present, Yes Normal facial strength present, Yes Midline tongue present and Yes Ability to bilaterally elevate shoulders present Cognition (Neuro): normal cognition Gait exam (Neuro): Normal gait present Motor exam (neuro): 5/5 motor strength present throughout and Normal motor muscle tone present throughout Deep tendon reflexes (DTR's): Right triceps reflex intensity grade: 1+, Left triceps reflex intensity grade: 1+, Rt Biceps (C5, C6): 1+, Left biceps reflex intensity grade: 1+, Right brachioradialis reflex intensity grade: 1+, Left brachioradialis reflex intensity grade: 1+, Right patellar reflex intensity grade: 1+ and Left patellar reflex intensity grade: 1+ Psych Appearance: grossly normal Speech and movement: Normal speech and movement present Thought process: Normal thought process present Thought content: Normal thought content present Results Reviewed Results Reviewed: EMG / NCS 09/2024 IMPRESSION: Mild bilateral median neuropathy across carpal tunnel. Assessment & Plan Assessment & Plan (1) Numbness and tingling in both hands: Comment: CTS median nerve - neuropathy Code(s): R20.0 - Anesthesia of skin; R20.2 - Paresthesia of skin Category: Medical (2) Carpal tunnel syndrome on both sides: Comment: wrist braces Code(s): G56.03 - Carpal tunnel syndrome, bilateral upper limbs Category: Medical (3) Excessive daytime sleepiness: Code(s): G47.19 - Other hypersomnia Category: Medical Plan Carpal Tunnel Syndrome bilateral median nerve neuropathy. Reviewed EMG / NCS with patient. Wear bilateral wrist braces as tolerable 2-3 hours a day and 2-3 hours a night for nerve impingement pain. Start Meloxicam 7.5mg po prn for radiating pain. PT for evaluation of nerve impingement. Will refer for corticosteroid shots in the future if not improved. Fatigue Labs to r/o deficiencies. cbc/cmp/ b12/homocystein /mma/ F/U in 3 months. Orders: Orders PT Evaluation and Treatment Today G56.03 - Carpal tunnel syndrome, bilateral upper limbs, R20.0 - Anesthesia of skin, R20.2 - Paresthesia of skin Comprehensive Met. Panel Today G47.19 - Other hypersomnia Methylmalonic Acid Today G47.19 - Other hypersomnia, G47.9 - Sleep disorder, unspecified, R53.83 - Other fatigue Vitamin D 25-OH Total Today G47.19 - Other hypersomnia Complete Blood Count no Diff Today G47.19 - Other hypersomnia Ferritin Today G47.19 - Other hypersomnia Hemoglobin A1c Today G47.19 - Other hypersomnia Homocysteine Today G47.19 - Other hypersomnia, G47.9 - Sleep disorder, unspecified, R53.83 - Other fatigue TSH reflex Free T4 Today G47.19 - Other hypersomnia Vitamin B12 and Folate Today G47.19 - Other hypersomnia Medications: New meloxicam 7.5 mg PO DAILY 30 tabs 0RF carpal tunnel syndrome 30 days MDD 7.5mg G56.03 - Carpal tunnel syndrome, bilateral upper limbs, R20.0 - Anesthesia of skin, R20.2 - Paresthesia of skin [wrist brace] As directed wear wrist brace on each wrist, 2-3 hours as tolerable 1 on the left wrist / and 1 on the right wrist. 1 ea 0RF carpal tunnel syndrome G56.03 - Carpal tunnel syndrome, bilateral upper limbs, R20.0 - Anesthesia of sk in, R20.2 - Paresthesia of skin Patient Instructions: Sleep Hygiene provided: set a scheduled bedtime and wake time to help regulate the circadian rhythm and balance the release of pituitary hormones. Sleep in a dark room, temperatures below 68 degrees, and no devices n bed. Limit caffeinated products 6 hours prior to bed, and limit fluids 2-4 hours prior to bed. Gentle night yoga, diffusing essential oils, and playing soft music can be relaxing. Self care with of a parent, continue counseling as needed with therapist, consider diet and excercise daily, may need to adjunct with SSRI if recurring panic attacks. Sleep schedule should be regulated per above. Have son sleep in his own room and you can sleep with him in his room if that helps. Selfcare is important take all your supplements as needed we will evaluate with labs. Coding Level of Care Code Est Pt Level 4 (41432) Complex EM visit Add On G2211 Diagnoses Numbness and tingling in both hands R20.0; R20.2 Carpal tunnel syndrome on both sides G56.03 Excessive daytime sleepiness G47.19 Time Spent (min) 30 Comment CTS improving
--- OUTSIDE RECORDS SUMMARY | 2025-02-19 11:36 | XMS_ITS | Clinical Summary ---
Author Organization 175 [facility] Address [address] [place] [address] Phone Care Team Providers Care Rigger Name Role Phone Humera Bautista MD Primary Care Provider [phone] Allergies No known active allergies Medications fluticasone propionate (FLONASE) 50 mcg/actuation nasal sprayIndication s:allergic conjunctivitis, allergic rhinitis Administer 2 sprays into each nostril 1 (one) time each day. Shake gently. Before first use, prime pump. After use, clean tip and replace cap. 30 mL 3 4 Active calcium carbonate-vitam in D 500 mg-5 mcg (200 unit) per tablet Take 1 tablet by mouth 2 (two) times a day. 180 each 3 5 12/05/19 26 Active Active Problems Problem Noted Date Diagnosed Date Class 2 obesity with body ma ss index (BMI) of 37.0 to 37.9 in adult 04/24/2024 Encounters Date Type Department Care Team Description 12/04/2024 9:00 AM EDT Office Visit Internal Medicine - [place] [address] [facility] [address] [place] [address] Humera Bautista MD Class 2 obesity with body mass index (BMI) of 37.0 to 37.9 in adult, unspecified obesity type, unspecified whether serious comorbidity present (Primary Dx); Gastroesophageal reflux disease, unspecified whether esophagitis present from Last 3 Months Immunizations Name Administration Dates Next Due DTP 11/16/1995, 4,1991,1991,1991 [id number] (Pentacel) 2mo to less than 5yo 1991,1991,1991 Hepatitis B Pediatric (Enger ix B; Recombivax HB) to less than 20 yo 03/30/2002,11/18/2001,06/16/2001 Influenza Quadravalent, MDCK , 0.5ml, preservative free (Flucelvax) 6mo and older 03/29/2019,08/22/2018 Influenza, Unspecified 04/10/2020 MMR, measles mumps and rubel la Live (Priorix; M-M-R II) 12mo and older 11/16/1995,05/09/1992 OPV 11/16/1995, 4,1991,1991,1991 [email or web address] SARS-CoV-2 COVID-19, mRNA, LNP-S, preservative free 12/30/2020,12/08/2020 [...] Date Comments Covid-19 07/20/2021 DX:COVID-19; COM MENT: [facility] Family History Medical History Relation Name Comments [...] for your loved ones. For example, child center assistant or elderly care for an older adult? [...] 84 12/04/2024 9:04 AM EDT Temperature 36.1 C (97 F) 07/03/2024 12:05 PM EST Respiratory Rate - - Oxygen Saturation 98% 12/04/2024 9:04 AM EDT Inhaled Oxygen Concentration - - Weight 91.2 kg (201 lb) 12/04/2024 9:04 AM EDT Height 157.5 cm (5' 2 ) 07/03/2024 12:05 PM EST Body Mass Index 36.76 07/03/2024 12:05 PM EST Plan of Treatment Upcoming Encounters Date Type Department Care Team (Late st Contact Info) Description 06/06/2025 9:15 AM EST Office Visit Internal Medicine - [address] [phone] Humera Bautista MD [address] [place] [id number] Health Maintenance Due Date Last Done Comments COVID-19 Vaccine ( season) 2024 12/30/2020, 12/08/2020 Influenza Vaccine (#1) 2025 0, 03/29/2019, 08/22/2018 Social Influencers of Health Screening 05/30/2025 05/30/2024 Cervical Cancer Screening: HPV 08/25/2027 08/25/2022 Cholesterol [...] 11/06/2020, 0 10/06/2020, 10/29/2011, Additional history exists Depression Screening Completed 09/22/2024 HPV Vaccines Aged Out No longer eligi [...] 5 Years) and At-Risk Patients (6 to 49 Years) Aged Out No longer eligible based [...] LAB CHEMISTRY METHOD 06/05/2024 4:54 PM EST [facility] Triglycerides 104 0 - 150 mg/dL LAB CHEMISTRY METHOD 06/05/2024 4:54 PM EST [facility] HDL 58 >=40 mg/dL LAB CHEMISTRY METHOD 06/05/2024 4:54 PM EST [facility] LDL Calculated 104(H) 0 - 100 mg/dL LAB CHEMISTRY METHOD 06/05/2024 4:54 PM EST [facility] VLDL Cholesterol Navi 20.8 mg/dL LAB CHEMISTRY METHOD 06/05/2024 4:54 PM EST [facility] Non HDL Chol. (LDL+VLDL) 125 <145 mg/dL LAB CHEMISTRY METHOD 06/05/2024 4:54 PM EST [facility] Chol/HDL Ratio 3.2 0.0 - 4.4 LAB CHEMISTRY METHOD 06/05/2024 4:54 PM EST [facility] Blood Venous blood specimen / Unknown Venipuncture / Unknown 06/05/2024 10:06 AM EST 06/05/2024 10:07 AM EST us Alicia Warren NP LAB BLOOD ORDERABLES Final Resul t [facility] [address] [place] [address], [place] [phone] * Cervical Cancer Screening: HPV (08/25/2022) Pathologist [facility] Cervical Cancer Screening: HPV Negative, Abstracted Historical Provider HEALTH MAINTENANCE Final Result * HIV Screening (03/11/2020) Pathologist [facility] HIV Screening Abstracted Historical Provider HEALTH MAINTENANCE Final Result * Hepatitis C Screening (03/11/2020) Pathologist [facility] Hepatitis C Screening Abstracted Historical Provider HEALTH MAINTENANCE Final Result from Last 3 Months or Most Recently Relevant to Health Maintenance Insurance [facility] [place] [id number] Care Teams Rigger Relationship Specialty Start Date End Date Humera Bautista MD [address] [place] [address] [address] [place] [address] PCP - General 10/06/23
== END 2025-02-19 12:04 | disposition home or self-care (01) ==
LOC: HO.HSMS 10:43
PROVIDERS: PCP Student in an Organized Health Care Education/Training Program; Visit Provider Physician Assistant Medical
DX: R20.0 Anesthesia of skin (principal); R20.2 Paresthesia of skin; G56.03 Carpal tunnel syndrome, bilateral upper limbs; G47.19 Other hypersomnia
CPT/HCPCS: 99214

== ENCOUNTER 2025-06-08 09:08 | Outpatient (AMB) | payer OTHER, SELFPAY ==
--- OUTSIDE RECORDS SUMMARY | 2025-06-06 09:15 | XMS_ITS | Encounter Summary ---
Author Organization [facility] Address [address] [place] [address] Care Team Providers Care Scruff Worker Name Role Phone Humera Bautista MD Primary Care Provider [phone] Reason for Visit * Reason Comments Annual Exam Encounter Details Date Type Department Care Team (Latest Contact Info) Description 06/06/2025 9:15 AM EST Office Visit Internal Medicine - [address] [place] [phone] Humera Bautista MD [address] [place] [phone] Encounter for annual physical exam (Primary Dx); Other fatigue; Encounter for lipid screening for cardiovascular disease; Other abnormal glucose; Class 2 obesity with body mass index (BMI) of 37.0 to 37.9 in adult, unspecified obesity type, unspecified whether serious comorbidity present; Vitamin D deficiency; Need for prophylactic vaccination and inoculation against influenza Social History Tobacco Use Types Packs/Day Years [...] for your loved ones. For example, child nurse or elderly care for an older adult? [...] Date Recorded What is your living situation? Unrecognized valu e 05/30/2024 Education Answer Date Recorded What is the highest level of school you have completed or the highest degree you have received? Bachelor's degree (e.g., BA, AB, BS) 06/06/2025 Comments No Sex and Gender Information Value Date Recorded Sex Assigned at Female 07/05/2024 10:46 AM EST Legal Sex Female 9:33 AM EST Gender Identity Female 07/05/2024 10:46 AM EST Sexual Orientation Straight 07/05/2024 10 :46 AM EST documented as of this encounter Last Filed Vital Signs Vital Sign Reading Time Taken Comments Blood Pressure 120/83 06/06/2025 9:06 AM EST Pulse 77 06/06/2025 9:06 AM EST Temperature 36.2 C (97.1 F) 06/06/2025 9:06 AM EST Respiratory Rate - - Oxygen Saturation 98% 06/06/2025 9:06 AM EST Inhaled Oxygen Concentration - - Weight 90.7 kg (200 lb) 06/06/2025 9:06 AM EST Height - - Body Mass Index 36.58 02/23/2025 3:36 PM EDT documented in this encounter Ordered Prescriptions Prescription Sig Dispense Quantity Refills Last Filled Start Date End Date calcium carbonate-vitamin D 500 mg-5 mcg (200 unit) per tablet Take 1 tablet by mouth 2 (two) times a day. 180 each 3 06/06/2025 06/06/2026 documented in this encounter Progress Notes * Humera Bautista MD - 06/06/2025 9:15 AM EST CHIEF COMPLAINT: Annual Exam IDENTIFIER: Carrol Baxter is a 35 y.o. old female who presents for evaluation of general medical health. HPI: History of Present Illness Patient is a 35-year-old lady with following past medical history came today for annual physical exam and follow-up of the following complaints Seasonal allergy: Patient complain of seasonal allergies and runny nose Patient does try to eat a balanced diet, does exercise regularly Patient does not smoke, patient does not drink alcohol in excess, patient does not use street drugs, patient does not drink caffeinated beverages in excess. Patient is sexually active. Reports 1 partners in the past 12 months. Health Maintenance: Health Maintenance Due Topic Date Due HPV Vaccines (1 - 3-dose SCDM series) Never done COVID-19 Vaccine ( season) 2025 ROS: Review of Systems As per HPI PAST MEDICAL HISTORY: Patient Active Problem List Diagnosis Date Noted Class 2 obesity with body mass index (BMI) of 37.0 to 37.9 in adult 04/24/2024 Surgical History[1] Most Recent Immunizations Administered Date(s) Administered DTP 11/16/1995 [id number] (Pentacel) 2mo to less than 5yo 1991 Hepatitis B Pediatric (Engerix B; Recombivax HB) to less than 20 yo 03/30/2002 Influenza Quadravalent, MDCK, 0.5ml, preservative free (Flucelvax) 6mo and older 03/29/2019 Influenza trivalent, MDCK, 0.5mL, preservative free (Flucelvax) 6mo and older 06/06/2025 Influenza, Unspecified 04/10/2020 MMR, measles mumps and rubella Live (Priorix; M-M-R II) 12mo and older 11/16/1995 OPV 11/16/1995 Pfizer SARS-CoV-2 COVID-19, mRNA, LNP-S, preservative free 12/30/2020 Rubella 03/11/2020 Td Tetanus diptheria (Tdvax) 7yo and older 04/18/2003 Tdap Tetanus diptheria acellular pertussis (Boostrix; Adacel) 7yo and older 07/02/2020 Varicella live (Varivax) 12mo and older 11/06/2020 Zoster Live 03/11/2020 HEALTH MAINTENANCE: Health Maintenance Topic Date Due HPV Vaccines (1 - 3-dose SCDM series) Never done COVID-19 Vaccine (3 - season) 2025 Social Influencers of Health Screening 06/06/2026 Cervical Cancer Screening: HPV 08/25/2027 Cholesterol Screening (Lipid Panel) 06/05/2029 DTaP,Tdap,and Td Vaccines (9 - Td or Tdap) 07/02/2030 RSV Immunization Adult Patients (1 - 1-dose 75+ series) 2066 Hepatitis B Vaccines Completed IPV Vaccines Completed MMR Vaccines Completed Varicella Vaccines Completed Influenza Vaccine Completed HIV Screening Completed Hepatitis C Screening Completed Depression Screening Completed HIB Vaccines Aged Out Hepatitis A Vaccines Aged Out Meningococcal ACWY Vaccine Aged Out Meningococcal B Vaccine Aged Out Pneumococcal Vaccine: Pediatrics (0 to 5 Years) and At-Risk Patients (6 to 49 Years) Aged Out RSV Immunization Patients Under 20 months Aged Out SOCIAL HISTORY: Social History Tobacco Use Smoking status: Never Smokeless tobacco: Never Substance Use Topics Alcohol use: No FAMILY HISTORY: Family History[2] Family Status Relation Name Status Mother Father Alive Brother Wood Alive MGM MGF Alive PGM PGF Uncle maternal Alive Mother's bryan MGGM Neg Hx (Not Specified) No partnership data on file MEDICATIONS DISCONTINUED/REORDERED: Medications Discontinued During This Encounter Medication Reason LORazepam (ATIVAN) 0.5 mg tablet Non-compliance hydrOXYzine HCL (ATARAX) 10 mg tablet Non-compliance calcium carbonate-vitamin D 500 mg-5 mcg (200 unit) per tablet Reorder ACTIVE MEDICATIONS: Medications Taking[3] ALLERGIES: Allergies[4] PHYSICAL EXAM: Visit Vitals BP 120/83 (BP Location: Left arm, Patient Position: Sitting, BP Cuff Size: Large adult) Pulse 77 Temp 36.2 ??C (97.1 ??F) (Temporal) Wt 90.7 kg (200 lb) SpO2 98% BMI 36.58 kg/m?? OB Status Having periods Smoking Status Never BSA 1.91 m?? Body mass index is 36.58 kg/m??. Physical Exam Physical Exam LABS: Appointment on 02/26/2025 Component Date Value Ref Range Status TSH 02/26/2025 0.89 0.40 - 4.00 mcIU/mL Final Magnesium 02/26/2025 2.1 1.9 - 2.6 mg/dL Final Sed Rate 02/26/2025 15 0 - 20 mm/hr Final WBC 02/26/2025 4.9 4.8 - 10.8 K/mcL Final RBC 02/26/2025 4.10 3.80 - 4.80 M/mcL Final Hemoglobin 02/26/2025 12.1 11.5 - 16.0 g/dL Final Hematocrit 02/26/2025 36.2 35.0 - 47.0 % Final MCV 02/26/2025 87.7 79.0 - 98.0 FL Final MCH 02/26/2025 29.3 27.0 - 32.0 pcg Final MCHC 02/26/2025 33.4 32.0 - 37.0 g/dL Final RDW 02/26/2025 12.5 11.0 - 15.0 % Final Platelets 02/26/2025 260 130 - 400 K/mcL Final MPV 02/26/2025 10.1 7.0 - 11.0 FL Final NRBC 02/26/2025 0.0 <1.0 % Final NRBC Absolute 02/26/2025 0.00 <0.10 K/mcL Final Neutrophils Relative 02/26/2025 44.7 % Final Lymphocytes Relative 02/26/2025 45.3 % Final Monocytes Relative 02/26/2025 9.2 % Final Eosinophils Relative 02/26/2025 0.4 % Final Basophils Relative 02/26/2025 0.2 % Final Immature Granulocytes Relative 02/26/2025 0.2 % Final Neutrophils Absolute 02/26/2025 2.18 1.50 - 7.00 K/mcL Final Lymphocytes Absolute 02/26/2025 2.21 1.00 - 5.00 K/mcL Final Monocytes Absolute 02/26/2025 0.45 0.20 - 1.00 K/mcL Final Eosinophils Absolute 02/26/2025 0.02 0.00 - 0.50 K/mcL Final Basophils Absolute 02/26/2025 0.01 0.00 - 0.20 K/mcL Final Immature Granulocytes Absolute 02/26/2025 0.01 0.00 - 0.03 K/mcL Final Results IMPRESSION: 1. Encounter for annual physical exam 2. Other fatigue 3. Encounter for lipid screening for cardiovascular disease 4. Other abnormal glucose 5. Class 2 obesity with body mass index (BMI) of 37.0 to 37.9 in adult, unspecified obesity type, unspecified whether serious comorbidity present 6. Vitamin D deficiency 7. Need for prophylactic vaccination and inoculation against influenza PLAN: Encounter for annual physical exam (Primary) - CBC and differential; Future - Hemoglobin A1c; Future - Comprehensive metabolic panel; Future - Lipid panel with reflex to direct LDL; Future - Thyroid stimulating hormone with reflex to free t4 and free t3; Future Other fatigue - CBC and differential; Future - Comprehensive metabolic panel; Future - Thyroid stimulating hormone with reflex to free t4 and free t3; Future Encounter for lipid screening for cardiovascular disease - Lipid panel with reflex to direct LDL; Future Other abnormal glucose - Hemoglobin A1c; Future Class 2 obesity with body mass index (BMI) of 37.0 to 37.9 in adult, unspecified obesity type, unspecified whether serious comorbidity present Vitamin D deficiency Need for prophylactic vaccination and inoculation against influenza - Influenza trivalent, MDCK, 0.5mL, preservative free (Flucelvax) 6mo and older Other orders - calcium carbonate-vitamin D 500 mg-5 mcg (200 unit) per tablet; Take 1 tablet by mouth 2 (two) times a day. Dispense: 180 each; Refill: 3 Assessment & Plan Annual physical: Routine annual physical exam done today. All the routine labs and screening test evaluated and ordered for the patient. Patient received flu vaccine today. Seasonal allergy: Advised to continue Flonase nasal spray 2 to spray each nostril as needed. Calcium and vitamin D supplementation ordered for the patient. Genetic cancer syndrome screening done: Not applicable Glaucoma screening regularly I offered STD testing to the patient, declined Discussed healthy dietary choices. Discussed increasing dietary fiber through fruits, veggies, whole grains. Advised the patient to exercise 30mins a day most days of the week. Advised patient to see a dentist at least yearly. Advised patient to use sunscreen, hats, clothing while outdoors in direct sunlight. Advised patient to wear a seatbelt while in the car. Advised the patient to check smoke/fire alarms at home regularly. Pelvic exams and PAPs regularly Discussed safe sex practices Self breast exams monthly. I have reviewed the following sections of the chart: Past Medical History Family History Social History All history reviewed, counseling done. All the question and concerns were answered Follow-up in 1 year or sooner as needed Advised the patient to call me if any problems. Patient understands the plan. Patient is in agreement with the plan. I have obtained verbal consent from Carrol Baxter prior to the recording. I have advised Carrol Baxter that she may refuse the recording and require the recording to be turned off at any time during this encounter. Humera Bautista MD on 06/06/2025 at 1:02 PM EST [1] Past Surgical History: Procedure Laterality Date WISDOM TOOTH EXTRACTION Bilateral 2016 PROCEDURE: HISTORICAL WISDOM TEETH EXTRACTION; COMMENT: lower R, upper left. no excess bleeding. [2] Family History Problem Relation Name Age of Onset Hypertension Mother Diabetes Mother type 2 - insulin Obesity Mother Anemia Mother No Known Problems Father no contact, he abandoned family when pt was 7 Other (Other: 2 yrs younger) Brother Nevalle healthy as of 02/2020 Other (Other: mild autism) Brother Nevalle Multiple myeloma Maternal Grandmother 51.00 age 69 [...] cancer Neg Hx Prostate cancer Neg Hx [3] Outpatient Medications Marked as Taking for the 06/06/25 encounter (Office Visit) with Humera Bautista MD Medication Sig Dispense Refill calcium carbonate-vitamin D 500 mg-5 mcg (200 unit) per tablet Take 1 tablet by mouth 2 (two) timesa day. 180 each 3 [4] No Known Allergies documented in this encounter Plan of Treatment Upcoming Encounters Date Type Department Care Team (Late st Contact Info) Description 06/07/2026 8:30 AM EST Office Visit Internal Medicine - [place] [address] [facility] [address] [place] [phone] Humera Bautista MD [address] [place] [phone] documented as of this encounter Results * Thyroid stimulating hormone with reflex to free t4 and free t3 (06/06/2025 9:46 AM EST) TSH 1.89 0.40 - 4.00 mcIU/mL 06/06/2025 4:02 PM EST [facility] Blood Venous blood specimen / Unknown Venipuncture / Unknown 06/06/2025 9:46 AM EST 06/06/2025 9:46 AM EST Humera Bautista MD LAB BLOOD ORDERABLES Final Resul t [facility] [address] [place] [address], * Lipid panel with reflex to direct LDL (06/06/2025 9:46 AM EST) Cholesterol 156 0 - 200 mg/dL 06/06/2025 4:[address] [facility] Triglycerides 73 0 - 150 mg/dL 06/06/2025 4:[address] [facility] HDL 58 >=40 mg/dL 06/06/2025 4:[address] [facility] LDL Calculated 83 0 - 100 mg/dL 06/06/2025 4:[address] [facility] Comment:Estimated LDL Calcul ated using equation: Total cholesterol - HDL cholesterol - (Triglycerides/5) VLDL Cholesterol Navi 14.6 mg/dL 06/06/2025 4:[address] [facility] Non HDL Chol. (LDL+VLDL) 98 <145 mg/dL 06/06/2025 4:[address] [facility] Chol/HDL Ratio 2.7 0.0 - 4.4 06/06/2025 4:[address] [facility] Blood Venous blood specimen / Unknown Venipuncture / Unknown 06/06/2025 9:46 AM EST 06/06/2025 9:46 AM EST us Humera Bautista MD LAB BLOOD ORDERABLES Final Resul t [facility] [address] [place] [address], * Comprehensive metabolic panel (06/06/2025 9:46 AM EST) Pathologist [facility] Sodium 139 133 - 145 mmol/L 06/06/2025 4:[address] [facility] Potassium 4.0 3.5 - 5.5 mmol/L 06/06/2025 4:[address] [facility] Chloride 101 96 - 110 mmol/L 06/06/2025 4:[address] [facility] CO2 28 21 - 32 mmol/L 06/06/2025 4:[address] [facility] Anion Gap 10 3 - 11 06/06/2025 4:[address] [facility] Glucose 98 70 - 100 mg/dL 06/06/2025 4:[address] [facility] BUN 10 5 - 25 mg/dL 06/06/2025 4:[address] [facility] Creatinine 0.84 0.50 - 1.10 mg/dL 06/06/2025 4:[address] [facility] eGFR 94 >=60 mL/min/1. 73m2 06/06/2025 4:[address] [facility] Comment:Calculation based on the Chronic Kidney Disease Epidemiology Collaboration (CKD-EPI) equation refit without adjustment for race. BUN/Creatinine Ratio 11.9 06/06/2025 4:[address] [facility] Calcium 9.0 8.5 - 10.5 mg/dL 06/06/2025 4:[address] [facility] AST (SGOT) 26 10 - 42 unit/L 06/06/2025 4:[address] [facility] ALT (SGPT) 19 10 - 60 unit/L 06/06/2025 4:[address] [facility] Alkaline Phosphatase 76 42 - 121 unit/L 06/06/2025 4:[address] [facility] Total Protein 7.4 6.0 - 8.0 g/dL 06/06/2025 4:[address] [facility] Albumin 3.6 3.2 - 5.0 g/dL 06/06/2025 4:[address] [facility] Total Bilirubin 0.7 0.0 - 1.4 mg/dL 06/06/2025 4:[address] [facility] Blood Venous blood specimen / Unknown Venipuncture / Unknown 06/06/2025 9:46 AM EST 06/06/2025 9:46 AM EST Humera Bautista MD LAB BLOOD ORDERABLES Final Resul t Performing Organization Address [facility] Co de Phone Number [facility] [address] [place] [address], [place] [phone] * Hemoglobin A1c (06/06/2025 9:46 AM EST) Hemoglobin A1C 5.4 <6.5 % LAB CHEMISTRY METHOD 06/06/2025 9:13 PM EST [facility] Mean Bld Glu Estim. 108 mg/dL LAB CHEMISTRY METHOD 06/06/2025 9:13 PM EST [facility] Blood Venous blood specimen / Unknown Venipuncture / Unknown 06/06/2025 9:46 AM EST 06/06/2025 9:46 AM EST Humera Bautista MD LAB BLOOD ORDERABLES Final Resul t Performing Organization Address [facility] de Phone Number [facility] [address] [place] [address], [place] [phone] documented in this encounter Visit Diagnoses Diagnosis Encounter for annual physical exam- Primary Other fatigue Encounter for lipid screening for cardiovascular disease Other abnormal glucose Class 2 obesity with body mass index (BMI) of 37.0 to 37.9 in adult, unspecified obesity type, unspecified whether serious comorbidity present Vitamin D deficiency Need for prophylactic vaccination and inoculation against influenza documented in this encounter Discontinued Medications Medication Sig Discontinue Reason Start Date End Da te LORazepam (ATIVAN) 0.5 mg tablet Take 1 tablet (0.5 mg total) by mouth at bedtime as needed for anxiety. Max Daily Amount: 0.5 mg Non-compliance 02/23/2025 06/06/2025 hydrOXYzine HCL (ATARAX) 10 mg tablet Take 1 tablet (10 mg total) by mouth 2 (two) times a day if needed for itching. Non-compliance 03/01/2025 06/06/2025 calcium carbonate-vitamin D 500 mg-5 mcg (200 unit) per tablet Take 1 tablet by mouth 2 (two) times a day. Reorder 12/04/2024 06/06/2025 documented as of this encounter Orders Immunization/Injection Count Last Ordered Date First Ordered Date INFLUENZA TRIVALENT, MDCK, 0 .5ML, PRESERVATIVE FREE (FLUCELVAX) 6MO AND OLDER 1 06/06/2025 documented in this encounter Additional Health Concerns Assessment Noted Time PHQ-9 Depression Total Score: 0 09/23/19 25 8:54 AM EST documented as of this encounter Care Teams Scruff Worker Relationship Specialty Start Date End Date Humera Bautista MD [address] [place] [phone] PCP - General 10/06/23 documented as of this encounter
--- OUTSIDE RECORDS SUMMARY | 2025-06-06 09:45 | XMS_ITS | Encounter Summary ---
Author Organization [facility] Address [address] [place] [address] Care Team Providers Care Law Librarian Name Role Phone Humera Bautista MD Primary Care Provider [phone] Encounter Details Date Type Department Care Team (Late st Contact Info) Description 06/06/2025 9:45 AM EST Lab Draw Station - [address] [place] [address] Encounter for annual physical exam; Other fatigue; Encounter for lipid screening for cardiovascular disease; Other abnormal glucose Social History Tobacco Use Types Packs/Day Years [...] care for your loved ones. For example, children librarian or elderly care for an older adult? [...] AM EST documented as of this encounter Plan of Treatment Upcoming Encounters Date Type Department Care Team (Late st Contact Info) Description 06/07/2026 8:30 AM EST Office Visit Internal Medicine - [address] [place] [address] Humera Bautista MD [address] [place] [phone] documented as of this encounter Procedures Procedure Name Priority Date/Time Associated Diagnosis Comments THYROID STIMULATING HORMONE WITH REFLEX TO FREE T4 AND FREE T3 Routine 06/06/2025 9:46 AM EST Encounter for annual physical exam Other fatigue LIPID PANEL WITH REFLEX TO DIRECT LDL Routine 06/06/2025 9:46 AM EST Encounter for annual physical exam Encounter for lipid screening for cardiovascular disease CBC WITH AUTO DIFFERENTIAL Routine 06/06/2025 9:46 AM EST Encounter for annual physical exam Other fatigue CBC AND DIFFERENTIAL Routine 06/06/2025 9:46 AM EST Encounter for annual physical exam Other fatigue HEMOGLOBIN A1C Routine 06/06/2025 9:46 AM EST Encounter for annual physical exam Other abnormal glucose COMPREHENSIVE METABOLIC PANEL Routine 06/06/2025 9:46 AM EST Encounter for annual physical exam Other fatigue documented in this encounter Results * CBC auto differential (06/06/2025 9:46 AM EST) WBC 4.8 4.8 - 10.8 K/mcL LAB HEMETOLOGY METHOD 06/06/2025 2:15 PM [facility] RBC 4.40 3.80 - 4.80 M/mcL LAB HEMETOLOGY METHOD 06/06/2025 2:15 PM [facility] Hemoglobin 12.7 11.5 - 16.0 g/dL LAB HEMETOLOGY METHOD 06/06/2025 2:15 PM [facility] Hematocrit 39.5 35.0 - 47.0 % LAB HEMETOLOGY METHOD 06/06/2025 2:15 PM [facility] MCV 90.2 79.0 - 98.0 FL LAB HEMETOLOGY METHOD 06/06/2025 2:15 PM [facility] MCH 29.0 27.0 - 32.0 pcg LAB HEMETOLOGY METHOD 06/06/2025 2:15 PM [facility] MCHC 32.2 32.0 - 37.0 g/dL LAB HEMETOLOGY METHOD 06/06/2025 2:15 PM [facility] RDW 12.3 11.0 - 15.0 % LAB HEMETOLOGY METHOD 06/06/2025 2:15 PM [facility] Platelets 264 130 - 400 K/mcL LAB HEMETOLOGY METHOD 06/06/2025 2:15 PM [facility] MPV 10.0 7.0 - 11.0 FL LAB HEMETOLOGY METHOD 06/06/2025 2:15 PM [facility] NRBC 0.0 <1.0 % LAB HEMETOLOGY METHOD 06/06/2025 2:15 PM [facility] NRBC Absolute 0.00 <0.10 K/mcL LAB HEMETOLOGY METHOD 06/06/2025 2:15 PM [facility] Neutrophils Relative 52.0 % LAB HEMETOLOGY METHOD 06/06/2025 2:15 PM [facility] Lymphocytes Relative 38.9 % LAB HEMETOLOGY METHOD 06/06/2025 2:15 PM [facility] Monocytes Relative 7.5 % LAB HEMETOLOGY METHOD 06/06/2025 2:15 PM [facility] Eosinophils Relative 1.0 % LAB HEMETOLOGY METHOD 06/06/2025 2:15 PM [facility] Basophils Relative 0.4 % LAB HEMETOLOGY METHOD 06/06/2025 2:15 PM [facility] Immature Granulocytes Relative 0.2 % LAB HEMETOLOGY METHOD 06/06/2025 2:15 PM [facility] Neutrophils Absolute 2.51 1.50 - 7.00 K/mcL LAB HEMETOLOGY METHOD 06/06/2025 2:15 PM EST [facility] Lymphocytes Absolute 1.88 1.00 - 5.00 K/mcL LAB HEMETOLOGY METHOD 06/06/2025 2:15 PM [facility] Monocytes Absolute 0.36 0.20 - 1.00 K/mcL LAB HEMETOLOGY METHOD 06/06/2025 2:15 PM EST [facility] Eosinophils Absolute 0.05 0.00 - 0.50 K/[facility] LAB HEMETOLOGY METHOD 06/06/2025 2:15 PM EST [facility] Basophils Absolute 0.02 0.00 - 0.20 K/mcL LAB HEMETOLOGY METHOD 06/06/2025 2:15 PM [facility] Immature Granulocytes Absolute 0.01 0.00 - 0.03 K/[facility] LAB HEMETOLOGY METHOD 06/06/2025 2:15 PM [facility] Blood Venous blood specimen / Unknown Venipuncture / Unknown 06/06/2025 9:46 AM EST 06/06/2025 9:46 AM EST Humera Bautista MD LAB BLOOD ORDERABLES Final Resul t [facility] [address] [place] [address], * Hemoglobin A1c (06/06/2025 9:46 AM EST) Hemoglobin A1C 5.4 <6.5 % LAB CHEMISTRY METHOD 06/06/2025 9:13 PM EST [facility] Mean Bld Glu Estim. 108 mg/dL LAB CHEMISTRY METHOD 06/06/2025 9:13 PM [facility] Blood Venous blood specimen / Unknown Venipuncture / Unknown 06/06/2025 9:46 AM EST 06/06/2025 9:46 AM EST Humera Bautista MD LAB BLOOD ORDERABLES Final Resul t [facility] [address] [place] [address], [place] [phone] * Comprehensive metabolic panel (06/06/2025 9:46 AM EST) Sodium 139 133 - 145 mmol/L 06/06/2025 4:01 PM [facility] Potassium 4.0 3.5 - 5.5 mmol/L 06/06/2025 4:01 PM [facility] Chloride 101 96 - 110 mmol/L 06/06/2025 4:01 PM [facility] CO2 28 21 - 32 mmol/L 06/06/2025 4:01 PM [facility] Anion Gap 10 3 - 11 06/06/2025 4:01 PM [facility] Glucose 98 70 - 100 mg/dL 06/06/2025 4:01 PM [facility] BUN 10 5 - 25 mg/dL 06/06/2025 4:01 PM [facility] Creatinine 0.84 0.50 - 1.10 mg/dL 06/06/2025 4:01 PM [facility] eGFR 94 >=60 mL/min/1. 73m2 06/06/2025 4:01 PM [facility] Comment:Calculation based on the Chronic Kidney Disease Epidemiology Collaboration (CKD-EPI) equation refit without adjustment for race. BUN/Creatinine Ratio 11.9 06/06/2025 4:01 PM [facility] Calcium 9.0 8.5 - 10.5 mg/dL 06/06/2025 4:01 PM [facility] AST (SGOT) 26 10 - 42 unit/L 06/06/2025 4:01 PM [facility] ALT (SGPT) 19 10 - 60 unit/L 06/06/2025 4:01 PM [facility] Alkaline Phosphatase 76 42 - 121 unit/L 06/06/2025 4:01 PM [facility] Total Protein 7.4 6.0 - 8.0 g/dL 06/06/2025 4:01 PM [facility] Albumin 3.6 3.2 - 5.0 g/dL 06/06/2025 4:01 PM [facility] Total Bilirubin 0.7 0.0 - 1.4 mg/dL 06/06/2025 4:01 PM [facility] Blood Venous blood specimen / Unknown Venipuncture / Unknown 06/06/2025 9:46 AM EST 06/06/2025 9:46 AM EST us Humera Bautista MD LAB BLOOD ORDERABLES Final Resul t [facility] [address] [place] [address], * Lipid panel with reflex to direct LDL (06/06/2025 9:46 AM EST) Cholesterol 156 0 - 200 mg/dL 06/06/2025 4:01 PM [facility] Triglycerides 73 0 - 150 mg/dL 06/06/2025 4:01 PM [facility] HDL 58 >=40 mg/dL 06/06/2025 4:01 PM [facility] LDL Calculated 83 0 - 100 mg/dL 06/06/2025 4:01 PM [facility] Comment:Estimated LDL Calcul ated using equation: Total cholesterol - HDL cholesterol - (Triglycerides/5) VLDL Cholesterol Navi 14.6 mg/dL 06/06/2025 4:01 PM EST [facility] Non HDL Chol. (LDL+VLDL) 98 <145 mg/dL 06/06/2025 4:01 PM EST [facility] Chol/HDL Ratio 2.7 0.0 - 4.4 06/06/2025 4:01 PM EST [facility] Blood Venous blood specimen / Unknown Venipuncture / Unknown 06/06/2025 9:46 AM EST 06/06/2025 9:46 AM EST Humera Bautista MD LAB BLOOD ORDERABLES Final Resul t Performing Organization Address City/[facility]/ZIP Co de Phone Number [facility] [address] [place] [address], [place] [phone] * Thyroid stimulating hormone with reflex to free t4 and free t3 (06/06/2025 9:46 AM EST) TSH 1.89 0.40 - 4.00 mcIU/mL 06/06/2025 4:02 PM EST [facility] Blood Venous blood specimen / Unknown Venipuncture / Unknown 06/06/2025 9:46 AM EST 06/06/2025 9:46 AM EST Humera Bautista MD LAB BLOOD ORDERABLES Final Resul t [facility] [address] [place] [address], [place] [phone] documented in this encounter Visit Diagnoses Diagnosis Encounter for annual physical exam Other fatigue Encounter for lipid screening for cardiovascular disease Other abnormal glucose documented in this encounter Additional Health Concerns Assessment Noted Time PHQ-9 Depression Total Score: 0 09/23/19 25 8:54 AM EST documented as of this encounter Care Teams Law Librarian Relationship Specialty Start Date End Date Humera Bautista MD [address] [facility] [address] [place] [phone] PCP - General 10/06/23 documented as of this encounter
--- NOTE | 2025-06-08 09:20 | MHC.OFFVIS ---
Vital Signs 06/08/25 09:21 Height 5 ft 3 in Weight 206 lb 2 oz BMI 36.5 BP 118/82 Blood Pressure Location Rt brachial Position Sitting Pulse 70 Pulse Source Pulse Oximeter Pulse Oximetry (%) 98 Oxygen Delivery Method Room Air Intake Visit Reasons: 3 mnts f/u appt Intake Note: Patient presents follow up numbness. No labs. Patient states she believes it was stressed related. Headaches went away. looking for tips for better sleep Accompanied by: Self / Same As Patient Allergies No Known Allergies Allergy (Verified 06/08/25 09:20) HPI Comments Details: 35 y/o female comes for an evaluation of an episode of bilateral upper and lower extremity numbness. 11/2024 EMG / NCS reviewed with patient she has bilateral median nerve neuropathy and CTS symptoms. IMPRESSION: Mild bilateral median neuropathy across carpal tunnel. 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 She goes to bed at 9:30 to 9:45 and is no longer allowing her son to sleep in the bed with her. She denies snoring, witnessed apneas, gasping for air. She has fragmented sleep, tosses and turns all night long and is chronically having unrefreshed sleep. She has headaches, however improve once she takes tylenol. She has bruxism, does not wear a mouth guard. She has GERD like symptoms, with intermittent flair ups in the night due to burning sensation in the throat which is now managed with diet and lifestyle modifications, she takes an omeprazole as needed, limits spicy foods, lost 20lbs.She goes to the gym M//. Mood is has improved, less anxious now since seeing her therapist weekly. Her mother passed a few years ago and this caused her to have panic attacks. Memory is stable. Denies RLS symptoms, denies radiating pain, numbness, tingling, pins, needles, denies cervicalgia, lower back back pain, dizziness ,gait and balance difficulties. PMH: The episode was in May 2024 she woke up , felt woozy and mildly off balance. She thought it was a panic attack. when she went to the shower - she could not lift her arms above the shoulder and had tingling sensation bilaterally in forearms and hands. she called 911, it lasted 20 minutes.she did not go to ER as she had a PCP appointment later that day.the second episode was day before [place]- was getting ready for bed, had a mild headache, took tylenol. she could not sleep well that night due to restlessness a and tingling in her legs.No further episodes since then. [facility], [facility] Medical History Numbness and tingling in both hands Anxiety Class 2 obesity Surgical History [place] teeth removed Family History Mother HTN (hypertension) Diabetes Anemia Maternal Grandmother Anemia Maternal Uncle Crohn's disease Multiple myeloma Social History Alcohol intake: never Patient Tobacco Use Status: Never used Tobacco Physical Exam Vital Signs: Last Vital Signs Pulse 70 06/08/25 09:21 BP 118/82 06/08/25 09:21 Pulse Ox 98 06/08/25 09:21 Oxygen Delivery Method Room Air 06/08/25 09:21 BMI result Body Mass Index 36.5 Const General: cooperative and comfortable Nutritional Appearance: average body habitus Orientation/consciousness: patient oriented x3 Eyes Pupils: Equal, round and reactive pupils present Resp Effort & Inspection: normal respiratory effort and able to speak in complete sentences Neuro General: patient oriented x3, gait normal, tone normal and moves all extremities Cranial nerves: Yes Facial sensation intact/muscles of mastication intact, Yes Equal, round and reactive pupils present, Yes Bilaterally intact EOM present, Yes Nystagmus not present, Yes Normal facial strength present, Yes Midline tongue present and Yes Ability to bilaterally elevate shoulders present Cognition (Neuro): normal cognition Gait exam (Neuro): Normal gait present Motor exam (neuro): 5/5 motor strength present throughout and Normal motor muscle tone present throughout Deep tendon reflexes (DTR's): Right triceps reflex intensity grade: 1+, Left triceps reflex intensity grade: 1+, Rt Biceps (C5, C6): 1+, Left biceps reflex intensity grade: 1+, Right brachioradialis reflex intensity grade: 1+, Left brachioradialis reflex intensity grade: 1+, Right patellar reflex intensity grade: 1+ and Left patellar reflex intensity grade: 1+ Psych Appearance: grossly normal Speech and movement: Normal speech and movement present Thought process: Normal thought process present Thought content: Normal thought content present Assessment & Plan Assessment & Plan (1) Excessive daytime sleepiness: Code(s): G47.19 - Other hypersomnia Category: Medical (2) Numbness and tingling in both hands: Comment: CTS median nerve - neuropathy Code(s): R20.0 - Anesthesia of skin; R20.2 - Paresthesia of skin Category: Medical (3) Carpal tunnel syndrome on both sides: Comment: wrist braces Code(s): G56.03 - Carpal tunnel syndrome, bilateral upper limbs Category: Medical Plan HST r/o ELIS Carpal Tunnel Syndrome bilateral median nerve neuropathy. Reviewed EMG / NCS with patient. Continue to Wear bilateral wrist braces as tolerable 2-3 hours a day and 2-3 hours a night for median nerve impingement pain. Start Meloxicam 7.5mg po prn for radiating pain. PT declines today. Will refer for corticosteroid shots in the future if not improved. Fatigue Labs to r/o deficiencies. cbc/cmp/ b12/homocystein /mma/ F/U in 3 months. Orders: Orders RT home sleep study 06/08/25 G47.19 - Other hypersomnia Medications: Refilled [wrist brace] As directed wear wrist brace on each wrist, 2-3 hours as tolerable 1 on the left wrist / and 1 on the right wrist. 2 ea 0RF carpal tunnel syndrome G56.03 - Carpal tunnel syndrome, bilateral upper limbs, R20.0 - Anesthesia of skin, R20.2 - Paresthesia of skin Patient Instructions: Sleep Hygiene provided: set a scheduled bedtime and wake time to help regulate the circadian rhythm and balance the release of pituitary hormones. Sleep in a dark room, temperatures below 68 degrees, and no devices n bed. Limit caffeinated products 6 hours prior to bed, and limit fluids 2-4 hours prior to bed. Gentle night yoga, diffusing essential oils, and playing soft music can be relaxing. Coding Level of Care Code Est Pt Level 4 (84477) Diagnoses Excessive daytime sleepiness G47.19 Numbness and tingling in both hands R20.0; R20.2 Carpal tunnel syndrome on both sides G56.03 Sleep Questionnaire Difficulty falling asleep: No Difficulty staying asleep?: No Number of arousals: 1 Snoring: No Witnessed apneas: No Gasping arousals: No Nocturia: No GERD: Yes Vivid dreams: No Acting out dreams: No Abnormal behavior in sleep: No Abnormal movements in sleep: No Morning headaches: No Excessive daytime sleepiness: Yes Daytime naps: No Restless legs: No Hallucinations: No Sleep paralysis: No Drop attacks: No Sleep Study: No CPAP: No
[2025-06-08 09:21] VITALS: BP 118/82; PULSE 70; O2SAT 98; BMI 36.5
--- OUTSIDE RECORDS SUMMARY | 2025-06-08 09:31 | XMS_ITS | Encounter Summary ---
Author Organization [facility] Address [address] [place] [address] Care Team Providers Care Educational Speech Language Clinician Name Role Phone Humera Bautista MD Primary Care Provider [phone] Encounter Details Date Type Department Care Team (Late st Contact Info) Description 06/07/2025 Results Follow-Up Internal Medicine - [place] [address] [place] [phone] Humera Bautista MD [address] [place] [phone] Social History Tobacco Use Types Packs/Day Years [...] care for your loved ones. For example, home child care provider or elderly care for an older adult? [...] Upcoming Encounters Date Type Department Care Team ([facility] st Contact Info) Description 06/07/2026 8:30 AM EST Office Visit Internal Medicine - [place] [address] [facility] [address] [place] [phone] Humera Bautista MD [address] [place] [phone] documented as of this encounter Visit Diagnoses Not on filedocumented in this encounter Additional Health Concerns Assessment Noted Time PHQ-9 Depression Total Score: 0 09/23/19 25 8:54 AM EST documented as of this encounter Care Teams Educational Speech Language Clinician Relationship Specialty Start Date End Date Humera Bautista MD [address] [facility] [address] [place] [phone] PCP - General 10/06/23 documented as of this encounter
--- OUTSIDE RECORDS SUMMARY | 2025-06-08 09:31 | XMS_ITS | Clinical Summary ---
Author Organization 175 [facility] Address [address] [place] [address] Phone Care Team Providers Care Trade Promotion Analyst Name Role Phone Humera Bautista MD Primary Care Provider Allergies No known active allergies Medications fluticasone [...] times a day. 180 each 3 5 06/06/20 26 Active calcium carbonate-kervin min D 500 mg-5 mcg (200 unit) per tablet Take 1 tablet by mouth 2 (two) times a day. 180 each 3 5 06/06/20 25 Discontinu ed(Reorder ) LORazepam (ATIVAN) 0.5 mg tablet Take 1 tablet (0.5 mg total) by mouth at bedtime as needed for anxiety. Max Daily Amount: 0.5 mg 10 tablet 5 06/06/20 25 Discontinu ed(Non-com pliance) hydrOXYzine HCL (ATARAX) 10 mg tablet Take 1 tablet (10 mg total) by mouth 2 (two) times a day if needed for itching. 60 tablet 5 06/06/20 25 Discontinu ed(Non-com pliance) Active Problems Problem Noted Date Diagnosed Date Class 2 obesity with body ma ss index (BMI) of 37.0 to 37.9 in adult 04/24/2024 Encounters Date Type Department Care Team Description 06/07/2025 Results Follow-Up Internal Medicine - [place] 175 [facility] [address] [place] [phone] Humera Bautista MD 06/06/2025 9:45 AM EST Lab Draw Station - 175 [facility] 175 [facility] [address] [place] [phone] Encounter for annual physical exam; Other fatigue; Encounter for lipid screening for cardiovascular disease; Other abnormal glucose 06/06/2025 9:15 AM EST Office Visit Internal Medicine - [place] 175 [facility] [address] [place] [phone] Humera Bautista MD Encounter for annual physical exam (Primary Dx); Other fatigue; Encounter for lipid screening for cardiovascular disease; Other abnormal glucose; Class 2 obesity with body mass index (BMI) of 37.0 to 37.9 in adult, unspecified obesity type, unspecified whether serious comorbidity present; Vitamin D deficiency; Need for prophylactic vaccination and inoculation against influenza from Last 3 Months Immunizations Immunization Administration Dates Next Due DTP 11/16/1995, 4,1991,1991,1991 [id number] (Pentacel) 2mo to less than 5yo 1991,1991,1991 Hepatitis B Pediatric (Enger ix B; Recombivax HB) to less than 20 yo 03/30/2002,11/18/2001,06/16/2001 Influenza Quadravalent, MDCK , 0.5ml, preservative free (Flucelvax) 6mo and older 03/29/2019,08/22/2018 Influenza trivalent, MDCK, 0 .5mL, preservative free (Flucelvax) 6mo and older 06/06/2025 [...] History Medical History Date Comments Covid-19 07/20/2021 DX:[employer]volent; [employer] M[facility]: [facility] Class 2 obesity with body ma ss index (BMI) of 37.0 to 37.9 in adult 04/24/2024 Family History Medical History Relation Name Comments [...] for your loved ones. For example, child and family services worker or elderly care for an older adult? [...] F) 06/06/2025 9:06 AM EST Respiratory Rate 18 02/23/2025 3:36 PM EDT Oxygen Saturation 98% 06/06/2025 9:06 AM EST Inhaled Oxygen Concentration - - Weight 90.7 kg (200 lb) 06/06/2025 9:06 AM EST Height 157.5 cm (5' 2 ) 02/23/2025 3:36 PM EDT Body Mass Index 36.58 02/23/2025 3:36 PM EDT Plan of Treatment Upcoming Encounters Date Type Department Care Team (Late st Contact Info) Description 06/07/2026 8:30 AM EST Office Visit Internal Medicine - [address] [place] [address] Humera Bautista MD [facility] [place] [address] Health Maintenance Due Date Last Done Comments HPV Vaccines (1 - 3-dose SCDM series) 2018 COVID-19 Vaccine ( season) 2025 12/30/2020, 12/08/2020 Social Influencers of Health Screening 06/06/2026 06/06/2025, 05/30/2024 Cervical Cancer Screening: HPV 08/25/2027 08/25/2022 Cholesterol Screening (Lipid Panel) 06/06/2030 06/06/2025, 06/05/2024, 10/08/2023, Additional history exists DTaP,Tdap,and Td Vaccines (9 - Td or Tdap) 07/02/2030 07/02/2020, 08/22/2018, 04/18/2003, Additional history exists RSV Immunization Adult Patients (1 - 1-dose 75+ series) 2066 HIB Vaccines Aged Out 1991, 09/16, 1991 No longer eligible based on patient's age to complete this topic IPV Vaccines Completed 11/16/1995, 07/1993, 1991, Additional history exists MMR Vaccines Completed 11/16/1995, 05/09/1992 Hepatitis B Vaccines Completed 03/30/2002, 11/18/2001, 06/16/2001 HIV Screening Completed 03/11/2020 Hepatitis C Screening Completed 03/11/2020 Varicella Vaccines Completed 11/06/2020, 0 10/06/2020, 10/29/2011, Additional history exists Depression Screening Completed 09/22/2024 Influenza Vaccine Completed 06/06/2025, , 03/29/2019, Additional history exists Hepatitis A Vaccines Aged Out No long [...] Procedure Name Priority Date/Time Associated Diagnosis Comments CBC WITH AUTO DIFFERENTIAL Routine 06/06/2025 9:46 [...] Encounter for lipid screening for cardiovascular disease THYROID STIMULATING HORMONE WITH REFLEX TO FREE T4 AND FREE T3 Routine 06/06/2025 9:46 AM EST Encounter for annual physical exam Other fatigue HPV Routine 08/25/2022 HEPATITIS C SCREENING Routine 03/11/2020 HIV SCREENING Routine 03/11/2020 from Last 3 Months or Most Recently Relevant to Health Maintenance Results * Thyroid stimulating hormone with reflex to free t4 and free t3 (06/06/2025 9:46 AM EST) TSH 1.89 0.40 - 4.00 mcIU/mL 06/06/2025 4:02 PM EST [facility] Blood Venous blood specimen / Unknown Venipuncture / Unknown 06/06/2025 9:46 AM EST 06/06/2025 9:46 AM EST us Humera Bautista MD LAB BLOOD ORDERABLES Final Resul t [facility] [address] [place] [address], [place] [phone] * Lipid panel with reflex to direct LDL (06/06/2025 9:46 AM EST) Cholesterol 156 0 - 200 mg/dL 06/06/2025 4:01 PM EST [facility] Triglycerides 73 0 - 150 mg/dL 06/06/2025 4:01 PM [facility] HDL 58 >=40 mg/dL 06/06/2025 4:01 PM [facility] LDL Calculated 83 0 - 100 mg/dL 06/06/2025 4:01 PM [facility] Comment:Estimated LDL Calcul ated using equation: Total cholesterol - HDL cholesterol - (Triglycerides/5) VLDL Cholesterol Navi 14.6 mg/dL 06/06/2025 4:01 PM [facility] Non HDL Chol. (LDL+VLDL) 98 <145 mg/dL 06/06/2025 4:01 PM [facility] Chol/HDL Ratio 2.7 0.0 - 4.4 06/06/2025 4:01 PM [facility] Blood Venous blood specimen / Unknown Venipuncture / Unknown 06/06/2025 9:46 AM EST 06/06/2025 9:46 AM EST us Humera Bautista MD LAB BLOOD ORDERABLES Final Resul t [facility] [address] [place] [address], [place] [phone] * CBC auto differential (06/06/2025 9:46 AM EST) WBC 4.8 4.8 - 10.8 K/mcL LAB HEMETOLOGY METHOD 06/06/2025 2:15 PM [facility] RBC 4.40 3.80 - 4.80 M/mcL LAB HEMETOLOGY METHOD 06/06/2025 2:15 PM [facility] Hemoglobin 12.7 11.5 - 16.0 g/dL LAB HEMETOLOGY METHOD 06/06/2025 2:15 PM [facility] Hematocrit 39.5 35.0 - 47.0 % LAB HEMETOLOGY METHOD 06/06/2025 2:15 PM [facility] MCV 90.2 79.0 - 98.0 FL LAB HEMETOLOGY METHOD 06/06/2025 2:15 PM [facility] MCH 29.0 27.0 - 32.0 pcg LAB HEMETOLOGY METHOD 06/06/2025 2:15 PM [facility] MCHC 32.2 32.0 - 37.0 g/dL LAB HEMETOLOGY METHOD 06/06/2025 2:15 PM [facility] RDW 12.3 11.0 - 15.0 % LAB HEMETOLOGY METHOD 06/06/2025 2:15 PM [facility] Platelets 264 130 - 400 K/mcL LAB HEMETOLOGY METHOD 06/06/2025 2:15 PM [facility] MPV 10.0 7.0 - 11.0 FL LAB HEMETOLOGY METHOD 06/06/2025 2:15 PM [facility] NRBC 0.0 <1.0 % LAB HEMETOLOGY METHOD 06/06/2025 2:15 PM [facility] NRBC Absolute 0.00 <0.10 K/mcL LAB HEMETOLOGY METHOD 06/06/2025 2:15 PM [facility] Neutrophils Relative 52.0 % LAB HEMETOLOGY METHOD 06/06/2025 2:15 PM [facility] Lymphocytes Relative 38.9 % LAB HEMETOLOGY METHOD 06/06/2025 2:15 PM [facility] Monocytes Relative 7.5 % LAB HEMETOLOGY METHOD 06/06/2025 2:15 PM [facility] Eosinophils Relative 1.0 % LAB HEMETOLOGY METHOD 06/06/2025 2:15 PM [facility] Basophils Relative 0.4 % LAB HEMETOLOGY METHOD 06/06/2025 2:15 PM EST [facility] Immature Granulocytes Relative 0.2 % LAB HEMETOLOGY METHOD 06/06/2025 2:15 PM EST [facility] Neutrophils Absolute 2.51 1.50 - 7.00 K/[facility] LAB HEMETOLOGY METHOD 06/06/2025 2:15 PM EST [facility] Lymphocytes Absolute 1.88 1.00 - 5.00 K/mcL LAB HEMETOLOGY METHOD 06/06/2025 2:15 PM EST [facility] Monocytes Absolute 0.36 0.20 - 1.00 K/mcL LAB HEMETOLOGY METHOD 06/06/2025 2:15 PM EST [facility] Eosinophils Absolute 0.05 0.00 - 0.50 K/[facility] HEMETOLOGY METHOD 06/06/2025 2:15 PM EST [facility] Basophils Absolute 0.02 0.00 - 0.20 K/mcL LAB HEMETOLOGY METHOD 06/06/2025 2:15 PM EST [facility] Immature Granulocytes Absolute 0.01 0.00 - 0.03 K/mcL LAB HEMETOLOGY METHOD 06/06/2025 2:15 PM EST [facility] Blood Venous blood specimen / Unknown Venipuncture / Unknown 06/06/2025 9:46 AM EST 06/06/2025 9:46 AM EST us Humera Bautista MD LAB BLOOD ORDERABLES Final Resul t [facility] [address] [place] [address], * Hemoglobin A1c (06/06/2025 9:46 AM EST) Hemoglobin A1C 5.4 <6.5 % LAB CHEMISTRY METHOD 06/06/2025 9:13 PM EST [facility] Mean Bld Glu Estim. 108 mg/dL LAB CHEMISTRY METHOD 06/06/2025 9:13 PM [facility] Blood Venous blood specimen / Unknown Venipuncture / Unknown 06/06/2025 9:46 AM EST 06/06/2025 9:46 AM EST Humera Bautista MD LAB BLOOD ORDERABLES Final Resul t [facility] [address] [place] [address], * Comprehensive metabolic panel (06/06/2025 9:46 AM EST) Sodium 139 133 - 145 mmol/L 06/06/2025 4:01 PM [facility] Potassium 4.0 3.5 - 5.5 mmol/L 06/06/2025 4:01 PM [facility] Chloride 101 96 - 110 mmol/L 06/06/2025 4:01 PM [facility] CO2 28 21 - 32 mmol/L 06/06/2025 4:01 PM [facility] Anion Gap 10 3 - 11 06/06/2025 4:01 PM [facility] Glucose 98 70 - 100 mg/dL 06/06/2025 4:01 PM [facility] BUN 10 5 - 25 mg/dL 06/06/2025 4:01 PM [facility] Creatinine 0.84 0.50 - 1.10 mg/dL 06/06/2025 4:01 PM [facility] eGFR 94 >=60 mL/min/1. 73m2 06/06/2025 4:01 PM [facility] Comment:Calculation based on the Chronic Kidney Disease Epidemiology Collaboration (CKD-EPI) equation refit without adjustment for race. BUN/Creatinine Ratio 11.9 06/06/2025 4:01 PM [facility] Calcium 9.0 8.5 - 10.5 mg/dL 06/06/2025 4:01 PM [facility] AST (SGOT) 26 10 - 42 unit/L 06/06/2025 4:01 PM [facility] ALT (SGPT) 19 10 - 60 unit/L 06/06/2025 4:01 PM [facility] Alkaline Phosphatase 76 42 - 121 unit/L 06/06/2025 4:01 PM [facility] Total Protein 7.4 6.0 - 8.0 g/dL 06/06/2025 4:01 PM [facility] Albumin 3.6 3.2 - 5.0 g/dL 06/06/2025 4:01 PM [facility] Total Bilirubin 0.7 0.0 - 1.4 mg/dL 06/06/2025 4:01 PM [facility] Blood Venous blood specimen / Unknown Venipuncture / Unknown 06/06/2025 9:46 AM EST 06/06/2025 9:46 AM EST us Humera Bautista MD LAB BLOOD ORDERABLES Final Resul t [facility] [address] [place] [address], * Cervical Cancer Screening: HPV (08/25/2022) Pathologist [facility] Cervical Cancer Screening: HPV Negative, Abstracted Kaykay Cervantes MD HEALTH MAINTENANCE Final Result * HIV Screening (03/11/2020) Pathologist [facility] HIV Screening Abstracted Kaykay Cervantes MD HEALTH MAINTENANCE Final Result * Hepatitis C Screening (03/11/2020) Pathologist [facility] Hepatitis C Screening Abstracted Kaykay Cervantes MD HEALTH MAINTENANCE Final Result from Last 3 Months or Most Recently Relevant to Health Maintenance Insurance [facility] [place] [id number] Care Teams Trade Promotion Analyst Relationship Specialty Start Date End Date Humera Bautista MD [address] [place] [phone] PCP - General 10/06/23
== END 2025-06-08 09:56 | disposition home or self-care (01) ==
LOC: HO.HSMS 09:09
PROVIDERS: PCP Student in an Organized Health Care Education/Training Program; Visit Provider Physician Assistant Medical
DX: G47.19 Other hypersomnia (principal); R20.0 Anesthesia of skin; R20.2 Paresthesia of skin; G56.03 Carpal tunnel syndrome, bilateral upper limbs
CPT/HCPCS: 99214